=== PATIENT | male | born 1965 | race Caucasian/White ===

== ENCOUNTER 2018-03-03 15:40 | Inpatient (IN) ==
--- OUTSIDE RECORDS SUMMARY | 2018-03-02 15:54 | External Medical Summary | Referral Summary ---
:1965 Author Organization [facility] [address] [place] [address] Care Team Providers Name Role Phone Frederic Weems Primary Care Physician Encounter VC Date(s): 11/13/15 - 11/13/15 [facility] [address] [place] [address] [place] Discharge Disposition: 01-Home or Self Care Attending Physician: Frederic Weems MD Admitting Physician: Frederic Weems MD Vital Signs Most recent to oldest [Reference Range]: 1 Temperature Tympanic [36.6-38.1 degC] 36.4 degC *LOW* (11/13/15 7:38 AM) Peripheral Pulse Rate [60-100 bpm] 64 bpm (11/13/15 7:38 AM) Blood Pressure [90-140/60-90 mmHg] 134/78 mmHg (11/13/15 7:38 AM) Problem List Condition Effective Dates Status Health Status Informant Benign essential hypertension Active (disorder)(Confirmed) Benign prostatic Resolved hypertrophy(Confirmed) Hypertension(Confirmed) Active Hypertrophy-benign(Confirmed) Active APC (atrial premature Active contractions)(Confirmed) Single skin nodule(Confirmed) Active Squamous cell cancer of skin of left Active cheek(Confirmed) Thyroid disease(Confirmed) Active Allergies, Adverse Reactions, Alerts No Known Allergies Medications lisinopril 5 mg oral tablet See Instructions, TAKE 1/2 TABLET BY MOUTH EVERY DAY, # 30 tabs, 2 Refill(s), eRx: [facility] #[id number], TAKE ONE TABLET BY MOUTH EVERY DAY Start Date: 10/26/15 Status: Orderedmultivitamin 1 tablet, Oral, Daily, 0 Refill(s) Start Date: 07/03/14 Status: Ordered Results No data available for this section Immunizations Vaccine Date Refusal Reason tetanus/diphth/pertuss (Tdap) adult/adol 11/13/15 tetanus/diphth/pertuss (Tdap) adult/adol 04/19/09 hepatitis A-hepatitis B vaccine 11/13/15 tetanus-diphth toxoids (Td) adult/adol 06/04/98 Procedures Procedure Date Related Diagnosis Body Site Fine needle aspiration biopsy of thyroid using 02/06/10 ultrasound guidance1 Repair of inguinal hernia2 11/24/02 Umbilical herniorrhaphy3 11/24/02 Extraction of wisdom teeth Tonsillectomy Vasectomy 1sparse colloid, a few clusters of benign thyroid follicular epithelial [id number], together with inguinal hernia Social History Social History Type Response Smoking Status Never smoker Assessment and Plan Extracted from: Title: Ambulatory Patient Education Author: Frederic Weems MD Date: Family Medicine Acute Bronchitis Bronchitis is inflammation of the airways that extend from the windpipe into the lungs (bronchi). The inflammation often causes mucus to develop. This leads to a cough, which is the most common symptom of bronchitis. In acute bronchitis, the condition usually develops suddenly and goes away over time, usually in a couple weeks. Smoking, allergies, and asthma can make bronchitis worse. Repeated episodes of bronchitis may cause further lung problems. CAUSES Acute bronchitis is most often caused by the same virus that causes a cold. The virus can spread from person to person (contagious) through coughing, sneezing, and touching contaminated objects. SIGNS AND SYMPTOMS Cough. Fever. Coughing up mucus. Body aches. Chest congestion. Chills. Shortness of breath. Sore throat. DIAGNOSIS Acute bronchitis is usually diagnosed through a physical exam. Your health care provider will also ask you questions about your medical history. Tests, such as chest X-rays, are sometimes done to rule out other conditions. TREATMENT Acute bronchitis usually goes away in a couple weeks. Oftentimes, no medical treatment is necessary. Medicines are sometimes given for relief of fever or cough. Antibiotic medicines are usually not need ed but may be prescribed in certain situations. In some cases, an inhaler may be recommended to help reduce shortness of breath and control the cough. A cool mist vaporizer may also be used to help thin bronchial secretions and make it easier to clear the chest. HOME CARE INSTRUCTIONS Get plenty of rest. Drink enough fluids to keep your urine clear or pale yellow (unless you have a medical condition that requires fluid restriction). Increasing fluids may help thin your respiratory secretions (sputu m) and reduce chest congestion, and it will prevent dehydration. Take medicines only as directed by your health care provider. If you were prescribed an antibiotic medicine, finish it all even if you start to feel better. Avoid smoking and secondhand smoke. Exposure to cigarette smoke or irritating chemicals will make bronchitis worse. If you are a smoker, consider using nicotine gum or skin patches to help control withdrawal symptoms. Quitting smoking will help your lungs heal faster. Reduce the chances of another bout of acute bronchitis by washing your hands frequently, avoiding people with cold symptoms, and trying not to touch your hands to your mouth, nose, or eyes. Keep all follow-up visits as directed by your health care provider. SEEK MEDICAL CARE IF: Your symptoms do not improve after 1 week of treatment. SEEK IMMEDIATE MEDICAL CARE IF: You develop an increased fever or chills. You have chest pain. You have severe shortness of breath. You have bloody sputum. You develop dehydration. You faint or repeatedly feel like you are going to pass out. You develop repeated vomiting. You develop a severe headache. MAKE SURE YOU: Understand these instructions. Will watch your condition. Will get help right away if you are not doing well or get worse. Document Released: 12/10/2005 Document Revised: 03/19/2015 Document Reviewed: 04/25/2014 [facility] Patient Information 2015 [employer]. This information is not intended to replace advice given to you by your health care provider. Make sure you discuss any questions you have with your health care provider. Benign Prostatic Hyperplasia An enlarged prostate (benign prostatic hyperplasia) is common in older men. You may experience the following: Weak urine stream. Dribbling. Feeling like the bladder has not emptied completely. Difficulty starting urination. Getting up frequently at night to urinate. Urinating more frequently during the day. HOME CARE INSTRUCTIONS Monitor your prostatic hyperplasia for any changes. The following actions may help to alleviate any discomfort you are experiencing: Give yourself time when you urinate. Stay away from alcohol. Avoid beverages containing caffeine, such as coffee, tea, and luciano, because they can make the problem worse. Avoid decongestants, antihistamines, and some prescription medicines that can make the problem worse. Follow up with your health care provider for further treatment as recommended. SEEK MEDICAL CARE IF: You are experiencing progressive difficulty voiding. Your urine stream is progressively getting narrower. You are awaking from sleep with the urge to void more frequently. You are constantly feeling the need to void. You experience loss of urine, especially in small amounts. SEEK IMMEDIATE MEDICAL CARE IF: You develop increased pain with urination or are unable to urinate. You develop severe abdominal pain, vomiting, a high fever, or fainting. You develop back pain or blood in your urine. MAKE SURE YOU: Understand these instructions. Will watch your condition. Will get help right away if you are not doing well or get worse. Document Released: 11/02/2006 Document Revised: 07/05/2014 Document Reviewed: 04/04/2014 [employer] Patient Information 2015 [employer]. This information is not intended to replace advice given to you by your health care provider. Make sure you discuss any questions you have with your health care provider. Preventive Care for Adults A healthy lifestyle and preventive care can promote health and wellness. Preventive health guidelines for men include the following [place] practices: A routine yearly physical is a good way to check with your health care provider about your health and preventative screening. It is a chance to share any concerns and updates on your health and to receive a thorough exam. Visit your dentist for a routine exam and preventative care every 6 months. [place] your teeth twice a day and floss once a day. Good oral hygiene prevents tooth decay and gum disease. The frequency of eye exams is based on your age, health, family medical history, use of contact lenses, and other factors. Follow your health care provider's recommendations for frequency of eye exams. Eat a healthy diet. Foods such as vegetables, fruits, whole grains, low- fat dairy products, and lean protein foods contain the nutrients you need without too many calories. Decrease your intake of foods high in solid fats, added sugars, and salt. Eat the right amount of calories for you.Get information about a proper diet from your health care provider, if necessary. Regular physical exercise is one of the most important things you can do for your health. Most adults should get at least 150 minutes of moderate- intensity exercise (any activity that increases you r heart rate and causes you to sweat) each week. In addition, most adults need muscle-strengthening exercises on 2 or more days a week. Maintain a healthy weight. The body mass index (BMI) is a screening tool to identify possible weight problems. It provides an estimate of body fat based on height and weight. Your health care provi [facility]ad[facility] can find your BMI and can help you achieve or maintain a healthy weight. For adults 20 years and older: A BMI below 18.5 is considered underweight. A BMI of 18.5 to 24.9 is normal. A BMI of 25 to 29.9 is considered overweight. A BMI of 30 and above is considered obese. Maintain normal blood lipids and cholesterol levels by exercising and minimizing your intake of saturated fat. Eat a balanced diet with plenty of fruit and vegetables. Blood tests for lipids and ch olesterol should begin at age 20 and be repeated every 5 years. If your lipid or cholesterol levels are high, you are over 50, or you are at high risk for heart disease, you may need your cholesterol le vels checked more frequently.Ongoing high lipid and cholesterol levels should be treated with medicines if diet and exercise are not working. If you smoke, find out from your health care provider how to quit. If you do not use tobacco, do not start. Lung cancer screening is recommended for adults aged 5580 years who are at high risk for developing lung cancer because of a history of smoking. A yearly low-dose CT scan of the lungs is recomme nded for people who have at least a 64-obna-ocua history of smoking and are a current smoker or have quit within the past 15 years. A pack year of smoking is smoking an average of 1 pack of cigarettes a day for 1 year (for example: 1 pack a day for 30 years or 2 packs a day for 15 years). Yearly screening should continue until the smoker has stopped smoking for at least 15 years. Yearly screening shou ld be stopped for people who develop a health problem that would prevent them from having lung cancer treatment. If you choose to drink alcohol, do not have more than 2 drinks per day. One drink is considered to be 12 ounces (355 mL) of beer, 5 ounces (148 mL) of wine, or 1.5 ounces (44 mL) of liquor. Avoid use of street drugs. Do not share needles with anyone. Ask for help if you need support or instructions about stopping the use of drugs. High blood pressure causes heart disease and increases the risk of stroke. Your blood pressure should be checked at least every 12 years. Ongoing high blood pressure should be treated with medic heather, if weight loss and exercise are not effective. If you are 4579 years old, ask your health care provider if you should take aspirin to prevent heart disease. Diabetes screening involves taking a blood sample to check your fasting blood sugar level. This should be done once every 3 years, after age 45, if you are within normal weight and without risk fac tors for diabetes. Testing should be considered at a younger age or be carried out more frequently if you are overweight and have at least 1 risk factor for diabetes. Colorectal cancer can be detected and often prevented. Most routine colorectal cancer screening begins at the age of 50 and continues through age 75. However, your health care provider may recommen d screening at an earlier age if you have risk factors for colon cancer. On a yearly basis, your health care provider may provide home test kits to check for hidden blood in the stool. Use of a small ca justine at the end of a tube to directly examine the colon (sigmoidoscopy or colonoscopy) can detect the earliest forms of colorectal cancer. Talk to your health care provider about this at age 50, when ro utine screening begins. Direct exam of the colon should be repeated every 5 10 years through age 75, unless early forms of precancerous polyps or small growths are found. People who are at an increased risk for hepatitis B should be screened for this virus. You are considered at high risk for hepatitis B if: You were born in a country where hepatitis B occurs often. Talk with your health care provider about which countries are considered high risk. Your parents were born in a high-risk country and you have not received a shot to protect against hepatitis B (hepatitis B vaccine). You have HIV or AIDS. You use needles to inject street drugs. You live with, or have sex with, someone who has hepatitis B. You are a man who has sex with other men (MSM). You get hemodialysis treatment. You take certain medicines for conditions such as cancer, organ transplantation, and autoimmune conditions. Hepatitis C blood testing is recommended for all people born from 1945 through 1965 and any individual with known risks for hepatitis C. Practice safe sex. Use condoms and avoid high-risk sexual practices to reduce the spread of sexually transmitted infections (STIs). STIs include gonorrhea, chlamydia, syphilis, trichomonas, herpes, HPV, and human immunodeficiency virus (HIV). Herpes, HIV, and HPV are viral illnesses that have no cure. They can result in disability, cancer, and . If you are at risk of being infected with HIV, it is recommended that you take a prescription medicine daily to prevent HIV infection. This is called preexposure prophylaxis (PrEP). You are considered at risk if: You are a man who has sex with other men (MSM) and have other risk factors. You are a heterosexual man, are sexually active, and are at increased risk for HIV infection. You take drugs by injection. You are sexually active with a partner who has HIV. Talk with your health care provider about whether you are at high risk of being infected with HIV. If you choose to begin PrEP, you should first be tested for HIV. You should then be tested every 3 months for as long as you are taking PrEP. A one-time screening for abdominal aortic aneurysm (AAA) and surgical repair of large AAAs by ultrasound are recommended for men ages 65 to 75 years who are current or former smokers. Healthy men should no longer receive prostate-specific antigen (PSA) blood tests as part of routine cancer screening. Talk with your health care provider about prostate cancer screening. Testicular cancer screening is not recommended for adult males who have no symptoms. Screening includes self-exam, a health care provider exam, and other screening tests. Consult with your health c are provider about any symptoms you have or any concerns you have about testicular cancer. Use sunscreen. Apply sunscreen liberally and repeatedly throughout the day. You should seek shade when your shadow is shorter than you. Protect yourself by wearing long sleeves, pants, a wide-brimm ed hat, and sunglasses year round, whenever you are outdoors. Once a month, do a whole-body skin exam, using a mirror to look at the skin on your back. Tell your health care provider about new moles, moles that have irregular borders, moles that are larger th an a pencil eraser, or moles that have changed in shape or color. Stay current with required vaccines (immunizations). Influenza vaccine. All adults should be immunized every year. Tetanus, diphtheria, and acellular pertussis (Td, Tdap) vaccine. An adult who has not previously received Tdap or who does not know his vaccine status should receive 1 dose of Tdap. This initial do se should be followed by tetanus and diphtheria toxoids (Td) booster doses every 10 years. Adults with an unknown or incomplete history of completing a 3- dose immunization series with Td-containing vacc heather should begin or complete a primary immunization series including a Tdap dose. Adults should receive a Td booster every 10 years. Varicella vaccine. An adult without evidence of immunity to varicella should receive 2 doses or a second dose if he has previously received 1 dose. Human papillomavirus (HPV) vaccine. Males aged 1321 years who have not received the vaccine previously should receive the 3-dose series. Males aged 22 26 years may be immunized. Immunization i s recommended through the age of 26 years for any male who has sex with males and did not get any or all doses earlier. Immunization is recommended for any person with an immunocompromised condition thr ough the age of 26 years if he did not get any or all doses earlier. During the 3-dose series, the second dose should be obtained 48 weeks after the first dose. The third dose should be obtained 24 w eeks after the first dose and 16 weeks after the second dose. Zoster vaccine. One dose is recommended for adults aged 60 years or older unless certain conditions are present. Measles, mumps, and rubella (MMR) vaccine. Adults born before 1958 generally are considered immune to measles and mumps. Adults born in 1958 or later should have 1 or more doses of MMR vaccine unle ss there is a contraindication to the vaccine or there is laboratory evidence of immunity to each of the three diseases. A routine second dose of MMR vaccine should be obtained at least 28 days after th e first dose for students attending postsecondary schools, health care workers , or international travelers. People who received inactivated measles vaccine or an unknown type of measles vaccine during should receive 2 doses of MMR vaccine. People who received inactivated mumps vaccine or an unknown type of mumps vaccine before 1978 and are at high risk for mumps infection should consider i mmunization with 2 doses of MMR vaccine. Unvaccinated health care workers born before 1956 who lack laboratory evidence of measles, mumps, or rubella immunity or laboratory confirmation of disease shailesh mills consider measles and mumps immunization with 2 doses of MMR vaccine or rubella immunization with 1 dose of MMR vaccine. Pneumococcal 13-valent conjugate (PCV13) vaccine. When indicated, a person who is uncertain of his immunization history and has no record of immunization should receive the PCV13 vaccine. An adult aged 19 years or older who has certain medical conditions and has not been previously immunized should receive 1 dose of PCV13 vaccine. This PCV13 should be followed with a dose of pneumococcal polysacc haride (PPSV23) vaccine. The PPSV23 vaccine dose should be obtained at least 8 weeks after the dose of PCV13 vaccine. An adult aged 19 years or older who has certain medical conditions and previously re ceived 1 or more doses of PPSV23 vaccine should receive 1 dose of PCV13. The PCV13 vaccine dose should be obtained 1 or more years after the last PPSV23 vaccine dose. Pneumococcal polysaccharide (PPSV23) vaccine. When PCV13 is also indicated , PCV13 should be obtained first. All adults aged 65 years and older should be immunized. An adult younger than age 65 year s who has certain medical conditions should be immunized. Any person who resides in a usp or long-term care facility should be immunized. An adult smoker should be immunized. People with an imm unocompromised condition and certain other conditions should receive both PCV13 and PPSV23 vaccines. People with human immunodeficiency virus (HIV) infection should be immunized as soon as possible afte r diagnosis. Immunization during chemotherapy or radiation therapy should be avoided. Routine use of PPSV23 vaccine is not recommended for [place] Indians, [place] Natives, or people younger than 65 yea rs unless there are medical conditions that require PPSV23 vaccine. When indicated, people who have unknown immunization and have no record of immunization should receive PPSV23 vaccine. One-time revacc ination 5 years after the first dose of PPSV23 is recommended for people aged 1964 years who have chronic kidney failure, nephrotic syndrome, asplenia, or immunocompromised conditions. People who rec eived 12 doses of PPSV23 before age 65 years should receive another dose of PPSV23 vaccine at age 65 years or later if at least 5 years have passed since the previous dose. Doses of PPSV23 are not ne eded for people immunized with PPSV23 at or after age 65 years. Meningococcal vaccine. Adults with asplenia or persistent complement component deficiencies should receive 2 doses of quadrivalent meningococcal conjugate (MenACWY-D) vaccine. The doses should be o btained at least 2 months apart. Microbiologists working with certain meningococcal bacteria, recruits, people at risk during an outbreak, and people who travel to or live in countries with a h igh rate of meningitis should be immunized. A first-year college student up through age 21 years who is living in a residence [place] should receive a dose if he did not receive a dose on or after his 16th birthday. Adults who have certain high-risk conditions should receive one or more doses of vaccine. Hepatitis A vaccine. Adults who wish to be protected from this disease, have certain high-risk conditions, work with hepatitis A-infected animals, work in hepatitis A research labs, or travel to or work in countries with a high rate of hepatitis A should be immunized. Adults who were previously unvaccinated and who anticipate close contact with an international adoptee during the first [address] arrival in the [place] from a country with a high rate of hepatitis A should be immunized. Hepatitis B vaccine. Adults should be immunized if they wish to be protected from this disease, have certain high-risk conditions, may be exposed to blood or other infectious body fluids, are house hold contacts or sex partners of hepatitis B positive people, are clients or workers in certain care facilities, or travel to or work in countries with a high rate of hepatitis B. Haemophilus influenzae type b (Hib) vaccine. A previously unvaccinated person with asplenia or sickle cell disease or having a scheduled splenectomy should receive 1 dose of Hib vaccine. Regardless of previous immunization, a recipient of a hematopoietic stem cell transplant should receive a 3-dose series 612 months after his successful transplant. Hib vaccine is not recommended for adults with HIV infection. Preventive Service / Frequency Ages 19 to 39 Blood pressure check. / Every 1 to 2 years. Lipid and cholesterol check. / Every 5 years beginning at age 20. Hepatitis C blood test. / For any individual with known risks for hepatitis C. Skin self-exam. / Monthly. Influenza vaccine. / Every year. Tetanus, diphtheria, and acellular pertussis (Tdap, Td) vaccine. / Consult your health care provider. 1 dose of Td every 10 years. Varicella vaccine. / Consult your health care provider. HPV vaccine. / 3 doses over 6 months, if 26 or younger. Measles, mumps, rubella (MMR) vaccine. / You need at least 1 dose of MMR if you were born in 1957 or later. You may also need a second dose. Pneumococcal 13-valent conjugate (PCV13) vaccine. / Consult your health care provider. Pneumococcal polysaccharide (PPSV23) vaccine. / 1 to 2 doses if you smoke cigarettes or if you have certain conditions. Meningococcal vaccine. / 1 dose if you are age 19 to 21 years and a first-year college student living in a residence [place], or have one of several medical conditions. You may also need additional booster doses. Hepatitis A vaccine. / Consult your health care provider. Hepatitis B vaccine. / Consult your health care provider. Haemophilus influenzae type b (Hib) vaccine. / Consult your health care provider. Ages 40 to 64 Blood pressure check. / Every 1 to 2 years. Lipid and cholesterol check. / Every 5 years beginning at age 20. Lung cancer screening. / Every year if you are aged 5580 years and have a 59-iuev-jubl history of smoking and currently smoke or have quit within the past 15 years. Yearly screening is stopped o nce you have quit smoking for at least 15 years or develop a health problem that would prevent you from having lung cancer treatment. Fecal occult blood test (FOBT) of stool. / Every year beginning at age 50 and continuing until age 75. You may not have to do this test if you get a colonoscopy every 10 years. Flexible sigmoidoscopy or colonoscopy. / Every 5 years for a flexible sigmoidoscopy or every 10 years for a colonoscopy beginning at age 50 and continuing until age 75. Hepatitis C blood test. / For all people born from 1945 through 1965 and any individual with known risks for hepatitis C. Skin self-exam. / Monthly. Influenza vaccine. / Every year. Tetanus, diphtheria, and acellular pertussis (Tdap/Td) vaccine. / Consult your health care provider. 1 dose of Td every 10 years. Varicella vaccine. / Consult your health care provider. Zoster vaccine. / 1 dose for adults aged 60 years or older. Measles, mumps, rubella (MMR) vaccine. / You need at least 1 dose of MMR if you were born in 1957 or later. You may also need a second dose. Pneumococcal 13-valent conjugate (PCV13) vaccine. / Consult your health care provider. Pneumococcal polysaccharide (PPSV23) vaccine. / 1 to 2 doses if you smoke cigarettes or if you have certain conditions. Meningococcal vaccine. / Consult your health care provider. Hepatitis A vaccine. / Consult your health care provider. Hepatitis B vaccine. / Consult your health care provider. Haemophilus influenzae type b (Hib) vaccine. / Consult your health care provider. Ages 65 and over Blood pressure check. / Every 1 to 2 years. Lipid and cholesterol check./ Every 5 years beginning at age 20. Lung cancer screening. / Every year if you are aged 5580 years and have a 40-ryhj-nbxa history of smoking and currently smoke or have quit within the past 15 years. Yearly screening is stopped o nce you have quit smoking for at least 15 years or develop a health problem that would prevent you from having lung cancer treatment. Fecal occult blood test (FOBT) of stool. / Every year beginning at age 50 and continuing until age 75. You may not have to do this test if you get a colonoscopy every 10 years. Flexible sigmoidoscopy or colonoscopy. / Every 5 years for a flexible sigmoidoscopy or every 10 years for a colonoscopy beginning at age 50 and continuing until age 75. Hepatitis C blood test. / For all people born from 1945 through 1965 and any individual with known risks for hepatitis C. Abdominal aortic aneurysm (AAA) screening. / A one-time screening for ages 65 to 75 years who are current or former smokers. Skin self-exam. / Monthly. Influenza vaccine. / Every year. Tetanus, diphtheria, and acellular pertussis (Tdap/Td) vaccine. / 1 dose of Td every 10 years. Varicella vaccine. / Consult your health care provider. Zoster vaccine. / 1 dose for adults aged 60 years or older. Pneumococcal 13-valent conjugate (PCV13) vaccine. / Consult your health care provider. Pneumococcal polysaccharide (PPSV23) vaccine. / 1 dose for all adults aged 65 years and older. Meningococcal vaccine. / Consult your health care provider. Hepatitis A vaccine. / Consult your health care provider. Hepatitis B vaccine. / Consult your health care provider. Haemophilus influenzae type b (Hib) vaccine. / Consult your health care provider. Family history and personal history of risk and conditions may change your health care provider's recommendations. Document Released: 12/29/2002 Document Revised: 11/07/2014 Document Reviewed: 03/29/2012 Exit[employer] Patient Information 2015 [employer]. This information is not intended to replace advice given to you by your health care provider. Make sure you discuss any questions you have with your health care provider. No follow up information was provided. Extracted from: Title: Male physical Author: Frederic Weems MD Date: 11/13/15 Impression and Plan Diagnosis Benign essential hypertension (disorder) (QLW96-OW I10, Working, Medical). Well adult exam (SGZ12-QT Z00.00, Working, Medical). Non-toxic multinodular goiter (IAI74-FN E04.2, Working, Medical). BPH with urinary obstruction (XZN63-SU N40.1, Working, Medical). Snoring (YEB00-VO R06.83, Working, Medical). Acute bronchitis (OAQ39-JC J20.9, Working, Medical). Acute pansinusitis (EFN45-HC J01.40, Working, Medical). Plan: 1) Healthy diet and daily exercise helps most things. 2) Continue your current meds. 3) Get fasting lab drawn. 4) Twinrix vaccine series started today. You can get the second shot in one month or more. The third shot can be in 6 months. 5) See me in one year and as needed. 6) Rest and humidity helps with getting over this cold.. Orders Orders (Selected) Outpatient Orders Ordered Periodic Comp Preventive Med 40 to 64 years Est 83059: hepatitis A-hepatitis B vaccine: 0.5 mL, IntraMuscular, Once Future (On Hold) US Thyroid: . Dx/Order Association Plan: Diagnosis: Acute bronchitis Comment: Ordered: Periodic Comp Preventive Med 40 to 64 years Est 05599; 11/13/15 8:08:00 [employer]IOR PROGRAM PL[employer]NER, Well adult exam | Acute bronchitis | Acute pansinusitis | BPH with urinary obstruction Diagnosis: Acute pansinusitis Comment: Ordered: Periodic Comp Preventive Med 40 to 64 years Est 00291; 11/13/15 8:08:00 SENIOR PROGRAM PLANNER, Well adult exam | Acute bronchitis | Acute pansinusitis | BPH with urinary obstruction Diagnosis: BPH with urinary obstruction Comment: Ordered: Periodic Comp Preventive Med 40 to 64 years Est 41875; 11/13/15 8:08:00 SENIOR PROGRAM PLANNER, Well adult exam | Acute bronchitis | Acute pansinusitis | BPH with urinary obstruction Diagnosis: Benign essential hypertension (disorder) Comment: Diagnosis: Need for hepatitis A and B vaccination Comment: Ordered: hepatitis A-hepatitis B vaccine; 0.5 mL, IntraMuscular, Once, First Dose: 11/13/15 8:15:00 SENIOR PROGRAM PLANNER, Stop Date: 11/13/15 8:15:00 SENIOR PROGRAM PLANNER Diagnosis: Non-toxic multinodular goiter Comment: Diagnosis: Snoring Comment: Diagnosis: Well adult exam Comment: Ordered: Periodic Comp Preventive Med 40 to 64 years Est 05620; 11/13/15 8:08:00 SENIOR PROGRAM PLANNER, Well adult exam | Acute bronchitis | Acute pansinusitis | BPH with urinary obstruction Diagnosis: Non-toxic multinodular goiter Comment: End of Orders ."
--- OUTSIDE RECORDS SUMMARY | 2018-03-02 15:54 | External Medical Summary | Referral Summary ---
:1965 Author Organization [facility] [place] [address] Care Team Providers Name Role Phone Frederic Weems Primary Care Physician Encounter VC Date(s): 05/14/16 - 05/14/16 [facility] [place] [address]- Discharge Disposition: 01-Home or Self Care Attending Physician: Frederic Weems MD Admitting Physician: Frederic Weems MD Vital Signs No data available for this section Problem List Condition Effective Dates Status Health Status Informant Benign essential hypertension Active (disorder)(Confirmed) Benign prostatic Resolved hypertrophy(Confirmed) Hypertension(Confirmed) Active Hypertrophy-benign(Confirmed) Active APC (atrial premature Active contractions)(Confirmed) Single skin nodule(Confirmed) Active Squamous cell cancer of skin of left Active cheek(Confirmed) Thyroid disease(Confirmed) Active Allergies, Adverse Reactions, Alerts No Known Allergies Medications lisinopril 5 mg oral tablet 2.5 mg 0.5 tabs, Oral, Daily, mail order pharmacy, # 45 tabs, 4 Refill(s), Pharmacy: [facility], 0.5 tabs Oral Daily,Instr:mail order pharmacy Start Date: 12/13/15 Status: Orderedmultivitamin 1 tablet, Oral, Daily, 0 Refill(s) Start Date: 07/03/14 Status: Ordered Results No data available for this section Immunizations Vaccine Date Refusal Reason tetanus/diphth/pertuss (Tdap) adult/adol 11/13/15 tetanus/diphth/pertuss (Tdap) adult/adol 04/19/09 hepatitis A-hepatitis B vaccine 05/14/16 hepatitis A-hepatitis B vaccine 11/13/15 tetanus-diphth toxoids (Td) adult/adol 06/04/98 Procedures Procedure Date Related Diagnosis Body Site Fine needle aspiration biopsy of thyroid using 02/06/10 ultrasound guidance1 Repair of inguinal hernia2 11/24/02 Umbilical herniorrhaphy3 11/24/02 Extraction of wisdom teeth Tonsillectomy Vasectomy 1sparse colloid, a few clusters of benign thyroid follicular epithelial [id number], together with inguinal hernia Social History Social History Type Response Smoking Status Never smoker Assessment and Plan No data available for this section
--- OUTSIDE RECORDS SUMMARY | 2018-03-02 15:54 | External Medical Summary ---
:1965 Author Organization [facility] Address [address] [place] [address] Care Team Providers Name Role Phone Tejas To Unavailable Unavailable PROBLEMS Type Condition ICD9-CM Code [id number] Onset Condition SNOMED Code Code Dates Status Problem shelter (current) Z79.01 Active 762006839 use of anticoagulants Problem Episodic atrial I48.0 Active 06418362 fibrillation Problem Bradycardia 427.89 Active 71585462 Problem Hypertension 401.9 Active 28991632 Problem Hypertension I10 Active 36176478 Problem Abnormal 794.30 Active 271449835 Cardiovascular Study ALLERGIES Unknown Allergies SOCIAL HISTORY No smoking Hx information available PLAN OF CARE VITAL SIGNS MEDICATIONS Unknown Medications RESULTS No Results PROCEDURES No Known procedures IMMUNIZATIONS No Known Immunizations
--- OUTSIDE RECORDS SUMMARY | 2018-03-02 15:54 | External Medical Summary ---
:1965 Author Organization [facility] Address [address] [place] [address] Care Team Providers Name Role Phone Tejas To Unavailable Unavailable PROBLEMS Type Condition ICD9-CM Code [id number] Onset Condition SNOMED Code Code Dates Status Problem retirement (current) Z79.01 Active 299286723 use of anticoagulants Problem Episodic atrial I48.0 Active 38185629 fibrillation Problem Bradycardia 427.89 Active 67830218 Problem Hypertension 401.9 Active 77357152 Problem Hypertension I10 Active 53137776 Problem Abnormal 794.30 Active 283026150 Cardiovascular Study ALLERGIES Unknown Allergies SOCIAL HISTORY No smoking Hx information available PLAN OF CARE VITAL SIGNS MEDICATIONS Medication Instructions Dosage Frequency Start Date End Date Duration Status Amlodipine Orally qd 1 tab 24h 90 days Active Besylate 5 MG Sotalol HCl 80 Orally qd 1/2 qam 1 24h 90 days Active MG tab qpm RESULTS No Results PROCEDURES No Known procedures IMMUNIZATIONS No Known Immunizations
--- OUTSIDE RECORDS SUMMARY | 2018-03-02 15:54 | External Medical Summary ---
:1965 Author Organization [employer] Care Team Providers Name Role Phone Yousuf Tejas Provider Role Unavailable Allergies, Adverse Reactions, Alerts Substance Reaction Event Type N.K.D.A. Info Not Available Non Drug Allergy Problems Problem Type Condition ICD-9 Code Onset Dates Condition Status Assessment Abnormal Cardiovascular Study 794.30 Active Assessment Bradycardia 427.89 Active Problem Hypertension 401.9 Active Assessment Hypertension 401.9 Active Medications Medication Code System Code Instructions Start Date End Date Status Dosage Lisinopril NDC [address]- 5 MG Orally qhs 1/2 tab 01 M-Vit NDC [address]- Orally qd 1 tab 01 Procedures Procedure Coding System Code Date Office Visit, Est Pt., Level 3 CPT-4 42056 June 13, 2015 ELECTROCARDIOGRAM, COMPLETE CPT-4 78751 June 13, 2015 Vital Signs Date/Time: June 13, 2015 BMI 34.50 Index Weight 291.0 lbs Height 6 ft 5 in in Cardiac Monitoring Heart Rate 60 /min Oximetry 96% % Blood Pressure Diastolic 70 mm Hg Blood Pressure Systolic 122 mm Hg Results No Known Results Summary Purpose [employer] Submission
--- OUTSIDE RECORDS SUMMARY | 2018-03-02 15:54 | External Medical Summary | Referral Summary ---
:1965 [facility] Address [address] [place] [address] Care Team Providers Name Role Phone Dank Frederic Gina Primary Care Physician Encounter VC Date(s): 06/04/17 - 06/04/17 [facility] [place], [facility] [address] [place] [address]- [phone] Discharge Disposition: 01-Home or Self Care Attending Physician: Theo Villalpando MD Admitting Physician: Theo Villalpando MD Referring Physician: Theo Villalpando MD Vital Signs No data available for this section Problem List Condition Effective Dates Status Health Status Informant Benign essential hypertension Active (disorder)(Confirmed) Benign prostatic Resolved hypertrophy(Confirmed) Hypertension(Confirmed) Active Hypertrophy-benign(Confirmed) Active Obstructive sleep apnea treated with Active continuous positive airway pressure (CPAP)(Confirmed) APC (atrial premature Active contractions)(Confirmed) Single skin nodule(Confirmed) Active Squamous cell cancer of skin of left Active cheek(Confirmed) Thyroid disease(Confirmed) Active Allergies, Adverse Reactions, Alerts No Known Allergies Medications amLODIPine 5 mg oral tablet 5 mg 1 tabs, Oral, Bedtime (once a day), Dr. To, 0 Refill(s) Start Date: 02/12/17 Status: Orderedmultivitamin 1 tablet, Oral, Daily, 0 Refill(s) Start Date: 07/03/14 Status: Orderedsotalol 80 mg oral tablet See Instructions, 1/2 tablet oral in the monring and 1 at night (Dr. To), 0 Refill(s) Start Date: 02/12/17 Status: OrderedXarelto 20 mg oral tablet 20 mg 1 tabs, Oral, Daily, # 30 tabs, 11 Refill(s), Pharmacy: [facility] # [id number], 1 tabs Oral Daily Start Date: 02/12/17 Status: Ordered Results No data available for this section Immunizations Given and Recorded Vaccine Date Status Refusal Reason tetanus/diphth/pertuss (Tdap) adult/adol 11/13/15 Given tetanus/diphth/pertuss (Tdap) adult/adol 04/19/09 Recorded hepatitis A-hepatitis B vaccine 05/14/16 Given hepatitis A-hepatitis B vaccine 11/13/15 Given tetanus-diphth toxoids (Td) adult/adol 06/04/98 Recorded Procedures Procedure Date Related Diagnosis Body Site Colonoscopy2013 Fine needle aspiration biopsy of thyroid using 02/06/10 ultrasound guidance2 Repair of inguinal hernia3 11/24/02 Umbilical herniorrhaphy4 11/24/02 Extraction of wisdom teeth Tonsillectomy Vasectomy 1repeat in 10 [id number] colloid, a few clusters of benign thyroid follicular epithelial [id number], together with inguinal hernia Social History Social History Type Response Smoking Status Never smoker Assessment and Plan No data available for this section
--- OUTSIDE RECORDS SUMMARY | 2018-03-02 15:54 | External Medical Summary | Referral Summary ---
:1965 Author Organization [facility] [address] [place] [address] Care Team Providers Name Role Phone Frederic Weems Primary Care Physician Encounter [facility] Date(s): 02/12/17 - 02/12/17 [facility] [address] [place] [address] [place] Discharge Diagnosis: Paroxysmal atrial fibrillation Discharge Diagnosis: Acute bronchitis Discharge Diagnosis: Snoring Discharge Diagnosis: Excessive daytime sleepiness Discharge Diagnosis: Benign essential hypertension Discharge Diagnosis: Acute pansinusitis Discharge Disposition: -Home or Self Care Attending Physician: Frederic Weems MD Admitting Physician: Frederic Weems MD Vital Signs Most recent to oldest [Reference Range]: 1 Temperature Tympanic [36.6-38.1 degC] 37.0 degC (02/12/17 10:10 AM) Peripheral Pulse Rate [60-100 bpm] 64 bpm (02/12/17 10:10 AM) Blood Pressure [90-140/60-90 mmHg] 130/72 mmHg (02/12/17 10:10 AM) Problem List Condition Effective Dates Status [...] Daily, # 30 tabs, 11 Refill(s), Pharmacy: [facility] # [id number], 1 tabs Oral Daily Start Date: 02/12/17 [...] wisdom teeth Tonsillectomy Vasectomy 1repeat in 10 [id number] colloid, a few clusters of benign thyroid follicular epithelial [id number], together with inguinal hernia Social History Social History Type Response Smoking Status Never smoker Assessment and Plan Extracted from: Title: Ambulatory Patient Education Author: Frederic Weems MD Date: 02/12/17 Cardiovascular Atrial Fibrillation Atrial fibrillation is a type of irregular or rapid heartbeat (arrhythmia). In atrial fibrillation, the heart quivers continuously in a chaotic pattern. This occurs when parts of the heart receive disor ganized signals that make the heart unable to pump blood normally. This can increase the risk for stroke, heart failure, and other heart-related conditions. There are different types of atrial fibrillation, including: Paroxysmal atrial fibrillation. This type starts suddenly, and it usually stops on its own shortly after it starts. Persistent atrial fibrillation. This type often lasts longer than a week. It may stop on its own or with treatment. Long-lasting persistent atrial fibrillation. This type lasts longer than 12 months. Permanent atrial fibrillation. This type does not go away. Talk with your health care provider to learn about the type of atrial fibrillation that you have. CAUSES This condition is caused by some heart-related conditions or procedures, including: A heart attack. Coronary artery disease. Heart failure. Heart valve conditions. High blood pressure. Inflammation of the sac that surrounds the heart (pericarditis). Heart surgery. Certain heart rhythm disorders, such as Zuca-Ywgakoxbt-Jjpui syndrome. Other causes include: Pneumonia. Obstructive sleep apnea. Blockage of an artery in the lungs (pulmonary embolism, or PE). Lung cancer. Chronic lung disease. Thyroid problems, especially if the thyroid is overactive (hyperthyroidism) . Caffeine. Excessive alcohol use or illegal drug use. Use of some medicines, including certain decongestants and diet pills. Sometimes, the cause cannot be found. RISK FACTORS This condition is more likely to develop in: People who are older in age. People who smoke. People who have diabetes mellitus. People who are overweight (obese). Athletes who exercise vigorously. SYMPTOMS Symptoms of this condition include: A feeling that your heart is beating rapidly or irregularly. A feeling of discomfort or pain in your chest. Shortness of breath. Sudden light-headedness or weakness. Getting tired easily during exercise. In some cases, there are no symptoms. DIAGNOSIS Your health care provider may be able to detect atrial fibrillation when taking your pulse. If detected, this condition may be diagnosed with: An electrocardiogram (ECG). A Holter monitor test that records your heartbeat patterns over a 24-hour period. Transthoracic echocardiogram (TTE) to evaluate how blood flows through your heart. Transesophageal echocardiogram (VAL) to view more detailed images of your heart. A stress test. Imaging tests, such as a CT scan or chest X-ray. Blood tests. TREATMENT The main goals of treatment are to prevent blood clots from forming and to keep your heart beating at a normal rate and rhythm. The type of treatment that you receive depends on many factors, such as yo ur underlying medical conditions and how you feel when you are experiencing atrial fibrillation. This condition may be treated with: Medicine to slow down the heart rate, bring the heart's rhythm back to normal, or prevent clots from forming. Electrical cardioversion. This is a procedure that resets your heart's rhythm by delivering a controlled, low-energy shock to the heart through your skin. Different types of ablation, such as catheter ablation, catheter ablation with pacemaker, or surgical ablation. These procedures destroy the heart tissues that send abnormal signals. When the pacema ker is used, it is placed under your skin to help your heart beat in a regular rhythm. HOME CARE INSTRUCTIONS Take over-the counter and prescription medicines only as told by your health care provider. If your health care provider prescribed a blood-thinning medicine ( anticoagulant), take it exactly as told. Taking too much blood-thinning medicine can cause bleeding. If you do not take enough bloo d-thinning medicine, you will not have the protection that you need against stroke and other problems. Do not use tobacco products, including cigarettes, chewing tobacco, and e- cigarettes. If you need help quitting, ask your health care provider. If you have obstructive sleep apnea, manage your condition as told by your health care provider. Do not drink alcohol. Do not drink beverages that contain caffeine, such as coffee, soda, and tea. Maintain a healthy weight. Do not use diet pills unless your health care provider approves. Diet pills may make heart problems worse. Follow diet instructions as told by your health care provider. Exercise regularly as told by your health care provider. Keep all follow-up visits as told by your health care provider. This is important. PREVENTION Avoid drinking beverages that contain caffeine or alcohol. Avoid certain medicines, especially medicines that are used for breathing problems. Avoid certain herbs and herbal medicines, such as those that contain ephedra or ginseng. Do not use illegal drugs, such as cocaine and amphetamines. Do not smoke. Manage your high blood pressure. SEEK MEDICAL CARE IF: You notice a change in the rate, rhythm, or strength of your heartbeat. You are taking an anticoagulant and you notice increased bruising. You tire more easily when you exercise or exert yourself. SEEK IMMEDIATE MEDICAL CARE IF: You have chest pain, abdominal pain, sweating, or weakness. You feel nauseous. You notice blood in your vomit, bowel movement, or urine. You have shortness of breath. You suddenly have swollen feet and ankles. You feel dizzy. You have sudden weakness or numbness of the face, arm, or leg, especially on one side of the body. You have trouble speaking, trouble understanding, or both (aphasia). Your face or your eyelid droops on one side. These symptoms may represent a serious problem that is an emergency. Do not wait to see if the symptoms will go away. Get medical help right away. Call your local emergency services (911 in the [place] Do not drive yourself to the hospital. This information is not intended to replace advice given to you by your health care provider. Make sure you discuss any questions you have with your health care provider. Document Released: 11/02/2006 Document Revised: 07/23/2016 Document Reviewed: 02/27/2016 [employer] Patient Education 2016 [employer] No follow up information was provided. Extracted from: Title: several problems Author: Frederic Weems MD Date: 02/12/17 Impression and Plan Diagnosis Acute bronchitis (UFC14-QX J20.9, Discharge, Medical). Acute pansinusitis (QQI99-QW J01.40, Discharge, Medical). Benign essential hypertension (VLR93-IZ I10, Discharge, Medical). Excessive daytime sleepiness (BJP37-GL G47.19, Discharge, Medical). Paroxysmal atrial fibrillation (HMQ12-QU I48.0, Discharge, Medical). Snoring (IQM79-YI R06.83, Discharge, Medical). Plan: 1) Stay on the Xarelto until cleared by your accounts payable specialist to stop it. 2) Continue your other meds the same. 3) Avoid aspirin, Ibuprofen and Aleve. 4) See the sleep doctor for evaluation for possible sleep apnea, due to your daytime sleepiness, snoring, and atrial fibrillation. 5) see me in 9 months for your physical and as needed. 6) Rest at home till Thursday, due to illness. . Orders Orders (Selected) Outpatient Orders Ordered Office Visit Level 4 Est 06972: Prescriptions Prescribed Xarelto 20 mg oral tablet: 20 mg=1 tabs, Oral, Daily, 30 tabs, 11 Refill(s). Dx/Order Association Plan: Diagnosis: Acute bronchitis Comment: Ordered: Office Visit Level 4 Est [id number]; 02/12/17 11:37:00 CDT, Acute bronchitis | Acute pansinusitis | Snoring | Paroxysmal atrial fibrillation | Excessive daytime sleepiness | Benign essential hypertension Diagnosis: Acute pansinusitis Comment: Ordered: Office Visit Level 4 Est [id number]; 02/12/17 11:37:00 CDT, Acute bronchitis | Acute pansinusitis | Snoring | Paroxysmal atrial fibrillation | Excessive daytime sleepiness | Benign essential hypertension Diagnosis: Benign essential hypertension Comment: Ordered: Office Visit Level 4 Est [id number]; 02/12/17 11:37:00 CDT, Acute bronchitis | Acute pansinusitis | Snoring | Paroxysmal atrial fibrillation | Excessive daytime sleepiness | Benign essential hypertension Diagnosis: Excessive daytime sleepiness Comment: Ordered: Office Visit Level 4 Est [id number]; 02/12/17 11:37:00 CDT, Acute bronchitis | Acute pansinusitis | Snoring | Paroxysmal atrial fibrillation | Excessive daytime sleepiness | Benign essential hypertension Diagnosis: Paroxysmal atrial fibrillation Comment: Ordered: Office Visit Level 4 Est [id number]; 02/12/17 11:37:00 CDT, Acute bronchitis | Acute pansinusitis | Snoring | Paroxysmal atrial fibrillation | Excessive daytime sleepiness | Benign essential hypertension Diagnosis: Snoring Comment: Ordered: Office Visit Level 4 Est [id number]; 02/12/17 11:37:00 CDT, Acute bronchitis | Acute pansinusitis | Snoring | Paroxysmal atrial fibrillation | Excessive daytime sleepiness | Benign essential hypertension Additional Orders: Comment: Ordered: Xarelto 20 mg oral tablet,20 mg 1 tabs, Oral, Daily, # 30 tabs, 11 Refill(s), Pharmacy: [facility] #[id number], 1 tabs Oral Daily End of Orders ."
--- OUTSIDE RECORDS SUMMARY | 2018-03-02 15:54 | External Medical Summary ---
:1965 Author Organization [employer] Care Team Providers Name Role Phone Tejas To Provider Role Unavailable Allergies No Known Allergies Problems Problem Type Condition Code Onset Dates Condition Status Problem Hypertension 401.9 Active Medications No Known Medications Results No Known Results Summary Purpose [employer] Submission
--- OUTSIDE RECORDS SUMMARY | 2018-03-02 15:55 | External Medical Summary ---
:1965 Author Organization [employer] Care Team Providers Name Role Phone Tejas To Provider Role Unavailable Allergies No Known Allergies Problems Problem Type Condition ICD-9 Code Onset Dates Condition Status Problem Hypertension 401.9 Active Medications No Known Medications Results No Known Results Summary Purpose [employer] Submission
--- OUTSIDE RECORDS SUMMARY | 2018-03-02 15:55 | External Medical Summary ---
:1965 Author Organization [employer] Care Team Providers Name Role Phone Jaclyn Gale Provider Role Unavailable Allergies No Known Allergies Problems Problem Type Condition Code Onset Dates Condition Status Problem DOT/Work Physical V70.5 Active Medications No Known Medications Results No Known Results Summary Purpose [employer] Submission
--- OUTSIDE RECORDS SUMMARY | 2018-03-02 15:55 | External Medical Summary | Referral Summary ---
:1965 Author Organization [facility] Address [address] [place] [address] Care Team Providers Name Role Phone Frederic Weems Primary Care Physician Encounter [facility] [id number] Date(s): 09/07/17 - 09/07/17 [facility] [address] [place] [address]- [phone] Discharge Disposition: 01-Home or Self Care Attending Physician: Theo Villalpando MD Admitting Physician: Theo Villalpando MD Vital Signs Most recent to oldest [Reference Range]: 1 Peripheral Pulse Rate [60-100 bpm] 58 bpm *LOW* (09/07/17 3:12 PM) Blood Pressure [90-140/60-90 mmHg] 132/82 mmHg (09/07/17 3:12 PM) SpO2 93 % (09/07/17 3:12 PM) Problem List Condition Effective Dates Status Health [...] To, 0 Refill(s) Start Date: 02/12/17 Status: Orderedaspirin 81 mg oral tablet 81 mg 1 tabs, Oral, Daily, 0 Refill(s) Start Date: 07/06/17 Status: Orderedmultivitamin 1 tablet, Oral, Daily, 0 Refill(s) Start Date: 07/03/14 Status: Orderedsotalol 80 mg oral tablet 40 mg 0.5 tabs, Oral, BID, 0 Refill(s) Start Date: 02/12/17 Status: Ordered Immunizations Given and Recorded Vaccine Date Status Refusal Reason hepatitis A-hepatitis B vaccine 08/27/17 Given hepatitis A-hepatitis B vaccine 05/14/16 Given hepatitis A-hepatitis B vaccine 11/13/15 Given tetanus/diphth/pertuss (Tdap) adult/adol 11/13/15 Given tetanus/diphth/pertuss (Tdap) adult/adol 04/19/09 Recorded tetanus-diphth toxoids (Td) adult/adol 06/04/98 Recorded Procedures Procedure Date Related Diagnosis Body Site Colonoscopy2013 Fine needle aspiration biopsy of thyroid using 02/06/10 ultrasound guidance2 Repair of inguinal hernia3 11/24/02 Umbilical herniorrhaphy4 11/24/02 Extraction of wisdom teeth Tonsillectomy Vasectomy 1repeat in 10 [id number] colloid, a few clusters of benign thyroid follicular epithelial [id number], together with inguinal hernia Social History Social History Type Response Smoking Status Never smoker entered on: 07/03/14
--- OUTSIDE RECORDS SUMMARY | 2018-03-02 15:55 | External Medical Summary ---
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
--- OUTSIDE RECORDS SUMMARY | 2018-03-02 15:55 | External Medical Summary | Referral Summary ---
:1965 Author Organization [facility] Address [address] [place] [address] [place] [address] Care Team Providers Name Role Phone Frederic Weems Primary Care Physician Encounter [facility] [id number] Date(s): 08/27/17 - 08/27/17 [facility] [address] [place] [address] [place] Discharge Diagnosis: Well adult exam Discharge Diagnosis: Non-toxic multinodular goiter Discharge Diagnosis: BARB on CPAP Discharge Diagnosis: Left shoulder pain Discharge Diagnosis: Benign essential hypertension Discharge Diagnosis: Impaired fasting blood sugar Discharge Diagnosis: BPH with urinary obstruction Discharge Diagnosis: Need for hepatitis A and B vaccination Discharge Diagnosis: Plantar fasciitis of right foot Discharge Disposition: 01-Home or Self Care Attending Physician: Frederic Weems MD Admitting Physician: Frederic Weems MD Vital Signs Most recent to oldest [Reference Range]: 1 Temperature Tympanic [36.6-38.1 degC] 36.3 degC *LOW* (08/27/17 9:42 AM) Peripheral Pulse Rate [60-100 bpm] 60 bpm (08/27/17 9:42 AM) Blood Pressure [90-140/60-90 mmHg] 130/82 mmHg (08/27/17 9:42 AM) Problem List Condition Effective Dates Status [...] Procedures Procedure Date Related Diagnosis Body Site Colonoscopy1 2013 Fine needle aspiration biopsy of thyroid using 02/06/10 ultrasound guidance2 Repair of inguinal hernia3 11/24/02 Umbilical herniorrhaphy4 11/24/02 Extraction of wisdom teeth Tonsillectomy Vasectomy 1repeat in 10 [id number] colloid, a few clusters of benign thyroid follicular epithelial [id number], together with inguinal hernia Social History Social History Type Response Smoking Status Never smoker entered on: 07/03/14 Assessment and Plan Extracted from: Title: Ambulatory Patient Education Author: Frederic Weems MD Date: Preventive Health Health Maintenance, Male A healthy lifestyle and preventative care can promote health and wellness. Maintain regular health, dental, and eye exams. Eat a healthy diet. Foods like vegetables, fruits, whole grains, low-fat dairy products, and lean protein foods contain the nutrients you need and are low in calories. Decrease your intake of foods high in solid fats, added sugars, and salt. Get information about a proper diet from your health care provider, if necessary. Regular physical exercise is one of the most important things you can do for your health. Most adults should get at least 150 minutes of moderate- intensity exercise (any activity that increases your heart rate and causes you to sweat) each week. In addition, most adults need muscle-strengthening exercises on 2 or more days a week. Maintain a healthy weight. The body mass index (BMI) is a screening tool to identify possible weight problems. It provides an estimate of body fat based on height and weight. Your health care provid er can find your BMI and can help you achieve or maintain a healthy weight. For males 20 years and older: A BMI below 18.5 is considered underweight. A BMI of 18.5 to 24.9 is normal. A BMI of 25 to 29.9 is considered overweight. A BMI of 30 and above is considered obese. Maintain normal blood lipids and cholesterol by exercising and minimizing your intake of saturated fat. Eat a balanced diet with plenty of fruits and vegetables. Blood tests for lipids and cholester ol should begin at age 20 and be repeated every 5 years. If your lipid or cholesterol levels are high, you are over age 50, or you are at high risk for heart disease, you may need your cholesterol level s checked more frequently.Ongoing high lipid and cholesterol [...] low-dose CT scan of the lungs is recommen ded for people who have at least a 31-jnam-gird history of smoking and are current smokers or have quit within the past 15 years. A pack year of smoking is smoking an average of 1 pack of cigarettes a d ay for 1 year (for example, a 34-fmdn-kagk history of smoking could mean smoking 1 pack a day for 30 years or 2 packs a day for 15 years). Yearly screening should continue until the smoker has stopped s moking for at least 15 years. Yearly screening should be stopped for people who develop a health problem that would prevent them from having lung cancer treatment. If you choose to drink alcohol, do not have more than 2 drinks per day. One drink is considered to be 12 oz (360 mL) of beer, 5 oz (150 mL) of wine, or 1.5 oz (45 mL) of liquor. Avoid the use of street drugs. Do not share needles with anyone. Ask for help if you need support or instructions about stopping the use of drugs. High blood pressure causes heart disease and increases the risk of stroke. High blood pressure is more likely to develop in: People who have blood pressure in the end of the normal range (773848/ 8589 mm Hg). People who are overweight or obese. People who are . If you are 1839 years of age, have your blood pressure checked every 3 5 years. If you are 40 years of age or older, have your blood pressure checked every year. You should have your blood pres sure measured twiceonce when you are at a hospital or clinic, and once when you are not at a hospital or clinic. Record the average of the two measurements. To check your blood pressure when you are not at a hospital or clinic, you can use: An automated blood pressure machine at a pharmacy. A home blood pressure monitor. If you are 4579 years old, ask your health care provider if you should take aspirin to prevent heart disease. Diabetes screening involves taking a blood sample to check your fasting blood sugar level. This should be done once every 3 years after age 45 if you are at a normal weight and without risk factors for diabetes. Testing should be considered at a younger age or be carried out more frequently if you are overweight and have at least 1 risk factor for diabetes. Colorectal cancer can be detected and often prevented. Most routine colorectal cancer screening begins at the age of 50 and continues through age 75. However, your health care provider may recommend screening at an earlier age if you have risk factors for colon cancer. On a yearly basis, your health care provider may provide home test kits to check for hidden blood in the stool. A small camera at the end of a tube may be used to directly examine the colon (sigmoidoscopy or colonoscopy) to detect the earliest forms of colorectal cancer. Talk to your health care provider about this at age 50 when routine screening begins. A direct exam of the colon should be repeated every 510 years through age 75, unless early forms [...] treatment. You take certain medicines for conditions like cancer, organ transplantation, and autoimmune conditions. Hepatitis C blood testing is recommended for all people born from 1945 through 1965 and any individual with known risk factors for hepatitis C. Healthy men should no longer receive prostate-specific antigen (PSA) blood tests as part of routine cancer screening. Talk to your health care provider about prostate cancer screening. Testicular cancer screening is not recommended for adolescents or adult males who have no symptoms. Screening includes self-exam, a health care provider exam, and other screening tests. Consult with your health care provider about any symptoms you have or any concerns you have about testicular cancer. Practice safe sex. Use condoms and avoid high-risk sexual practices to reduce the spread of sexually transmitted infections (STIs). You should be screened for STIs, including gonorrhea and chlamydia if: You are sexually active and are younger than 24 years. You are older than 24 years, and your health care provider tells you that you are at risk for this type of infection. Your sexual activity has changed since you were last screened, and you are at an increased risk for chlamydia or gonorrhea. Ask your health care provider if you are at risk. If you are at risk of being infected with HIV, it is recommended that you take a prescription medicine daily to prevent HIV infection. This is called pre- exposure prophylaxis (PrEP). You are considered at risk if: You are a man who has sex with other men (MSM). You are a heterosexual man who is sexually active with multiple partners. You take drugs by injection. You are sexually active with a partner who has HIV. Talk with your health care provider about whether you are at high risk of being infected with HIV. If you choose to begin PrEP, you should first be tested for HIV. You should then be tested every 3 months for as long as you are taking PrEP. Use sunscreen. Apply sunscreen liberally and repeatedly throughout the day. You should seek shade when your shadow is shorter than you. Protect yourself by wearing long sleeves, pants, a wide-brimme d hat, and sunglasses year round whenever you are outdoors. Tell your health care provider of new moles or changes in moles, especially if there is a change in shape or color. Also, tell your health care provider if a mole is larger than the size of a pencil eraser. A one-time screening for abdominal aortic aneurysm (AAA) and surgical repair of large AAAs by ultrasound is recommended for men aged 6575 years who are current or former smokers. Stay current with your vaccines (immunizations). This information is not intended to replace advice given to you by your health care provider. Make sure you discuss any questions you have with your health care provider. Document Released: 04/30/2009 Document Revised: 11/23/2015 Document Reviewed: 08/05/2016 [employer] Patient Education 2017 [employer]. No follow up information was provided. Extracted from: Title: Male physical Author: Frederic Weems MD Date: 08/27/17 Impression and Plan Diagnosis Well adult exam (WYB61-IG Z00.00, Discharge, Medical). Benign essential hypertension (NKV62-KT I10, Discharge, Medical). Plantar fasciitis of right foot (JGQ50-GN M72.2, Discharge, Medical). Left shoulder pain (RJX02-SJ M25.512, Discharge, Medical). BPH with urinary obstruction (KPJ16-SZ N40.1, Discharge, Medical). Non-toxic multinodular goiter (UUE00-IO E04.2, Discharge, Medical). Impaired fasting blood sugar (DFE76-TW R73.01, Discharge, Medical). BARB on CPAP (NSE64-EQ G47.33, Discharge, Medical). Need for hepatitis A and B vaccination (SYB42-EB Z23, Discharge, Medical). Plan: 1) Healthy diet and daily exercise helps most things. 2) Continue your current meds. 3) UA and Vitamin D levels ordered. 4) See me in one year and as needed. 5) Arch supports, stretches, and ice massage recommended for your Plantar Fasciitis. 6) You refused the Flu shot. 7) Twinrix #3 given today.. Orders Orders (Selected) Outpatient Orders Ordered Periodic Comp Preventive Med 40 to 64 years Est [address]: hepatitis A-hepatitis B vaccine: 0.5 mL, IntraMuscular, Once. Dx/Order Association Plan: Diagnosis: BPH with urinary obstruction Comment: Diagnosis: Benign essential hypertension Comment: Diagnosis: Impaired fasting blood sugar Comment: Diagnosis: Left shoulder pain Comment: Diagnosis: Need for hepatitis A and B vaccination Comment: Ordered: hepatitis A-hepatitis B vaccine; 0.5 mL, IntraMuscular, Once, First Dose: 08/27/17 9:34:00 CDT, Stop Date: 08/27/17 9:34:00 CDT Diagnosis: Non-toxic multinodular goiter Comment: Diagnosis: BARB on CPAP Comment: Diagnosis: Plantar fasciitis of right foot Comment: Diagnosis: Well adult exam Comment: Ordered: Periodic Comp Preventive Med 40 to 64 years Est 99447; 08/27/17 9:34:00 CDT, Well adult exam End of Orders .
--- OUTSIDE RECORDS SUMMARY | 2018-03-02 15:56 | External Medical Summary ---
:1965 Author Organization [facility] Address [address] [place] [address] Care Team Providers Name Role Phone Tejas To Unavailable Unavailable PROBLEMS Type Condition ICD9-CM Code ITM32-IV Onset Condition SNOMED Code Code Dates Status Problem [facility] (current) Z79.01 Active 980775121 use of anticoagulants Problem Episodic atrial I48.0 Active 50934371 fibrillation Problem Bradycardia 427.89 Active 13012082 Problem Hypertension 401.9 Active 05018630 Problem Hypertension I10 Active 05310845 Problem Abnormal 794.30 Active 971867749 Cardiovascular Study ALLERGIES Unknown Allergies SOCIAL HISTORY No smoking Hx information available PLAN OF CARE VITAL SIGNS MEDICATIONS Unknown Medications RESULTS No Results PROCEDURES No Known procedures IMMUNIZATIONS No Known Immunizations
--- OUTSIDE RECORDS SUMMARY | 2018-03-02 15:56 | External Medical Summary | Referral Summary ---
:1965 Author Organization [facility] [address] [place] [address] Care Team Providers Name Role Phone Frederic Weems Primary Care Physician Encounter [facility] Date(s): 07/18/16 - 07/18/16 [facility] [address] [place] [address] [place] Discharge Disposition: 01-Home or Self Care Attending Physician: Frederic Weems MD Admitting Physician: Frederic Weems MD Vital Signs Most recent to oldest [Reference Range]: 1 Temperature Tympanic [36.6-38.1 degC] 36.1 degC *LOW* (07/18/16 3:45 PM) Peripheral Pulse Rate [60-100 bpm] 68 bpm (07/18/16 3:45 PM) Blood Pressure [90-140/60-90 mmHg] 132/90 mmHg (07/18/16 3:45 PM) Problem List Condition Effective Dates Status [...] pharmacy, # 45 tabs, 4 Refill(s), Pharmacy: [facility], 0.5 tabs Oral Daily,Instr:mail order pharmacy Start Date: 12/13/15 Status: Orderedmultivitamin 1 tablet, Oral, Daily, 0 Refill(s) Start Date: 07/03/14 Status: Orderedterbinafine 250 mg oral tablet See Instructions, Take 1 tab daily for 7 days, skip 21 days, then repeat cycle for one year, # 30 tabs, 2 Refill(s), Pharmacy: [facility] #[id number], Take 1 tab daily for 7 days, skip 21 days, then repeat cycle for one year Start Date: 05/22/16 Status: Ordered Results No data available for [...] few clusters of benign thyroid follicular epithelial [id number], together with inguinal hernia Social History Social History Type Response Smoking Status Never smoker Assessment and Plan Extracted from: Title: Ambulatory Patient Education Author: Frederic Weems MD Date: 07/18/16 Preventive Medicine Heart Disease Prevention Heart disease is a leading cause of . There are many things you can do to help prevent heart disease. BE PHYSICALLY ACTIVE Physical activity is good for your heart. It helps control your blood pressure , cholesterol levels, and weight. Try to be physically active every day. Ask your health care provider what activities are best for you. BE A HEALTHY WEIGHT Extra weight can strain your heart and affect your blood pressure and cholesterol levels. Lose weight with diet and exercise if recommended by your health care provider. EAT HEART-HEALTHY FOODS Follow a healthy eating plan as recommended by your health care provider or dietitian. Heart-healthy foods include: High-fiber foods. These include oat bran, oatmeal, and whole-grain breads and cereals. Fruits and vegetables. Avoid: Alcohol. Fried foods. Foods high in saturated fat. These include meats, butter, whole dairy products, shortening, and coconut or palm oil. Salty foods. These include canned food, luncheon meat, salty snacks, and fast food. KEEP YOUR CHOLESTEROL LEVELS UNDER CONTROL Cholesterol is a substance that is used for many important functions. When your cholesterol levels are high, cholesterol can stick to the insides of your blood vessels, making them narrow or clog. This can lead to chest pain (angina) and a heart attack. Keep your cholesterol levels under control as recommended by your health care provider. Have your cholesterol checked at least once a year. Target cholesterol levels (in mg/dL) for most people are: Total cholesterol below 200. LDL cholesterol below 100. HDL cholesterol above 40 in men and above 50 in women. Triglycerides below 150. KEEP YOUR BLOOD PRESSURE UNDER CONTROL Having high blood pressure (hypertension) puts you at risk for stroke and other forms of heart disease. Keep your blood pressure under control as recommended by your health care provider. Ask your [facility] care provider if you need treatment to lower your blood pressure. If you are 1839 years of age, have your blood pressure checked every 35 years. If you are 40 years of age or older, have your blood pressure checked every year. DO NOT USE TOBACCO PRODUCTS Tobacco smoke can damage your heart and blood vessels. Do not use any tobacco products including cigarettes, chewing tobacco, or electronic cigarettes. If you need help quitting, ask your health care provider. TAKE MEDICINES DIRECTED Take medicines only as directed by your health care provider. Ask your health care provider whether you should take an aspirin every day. Taking aspirin can help reduce your risk of heart disease and stroke. FOR MORE INFORMATION To find out more about heart disease, visit the [place] [employer]'s website at www.americanheart.org This information is not intended to replace advice given to you by your health care provider. Make sure you discuss any questions you have with your health care provider. Document Released: 06/16/2005 Document Revised: 11/23/2015 Document Reviewed: 12/27/2014 [employer] Patient Information 2016 [facility]. No follow up information was provided. Extracted from: Title: HTN, impaired FBS, neurofibroma, Author: Frederic Weems MD Date: 07/18/16 obesity Impression and Plan Diagnosis Benign essential hypertension (disorder) (VKJ19-YA I10, Working, Medical). Impaired fasting blood sugar (ABC91-VN R73.01, Working, Medical). Neurofibroma of back (DEI28-RY D23.9, Working, Medical). Plan: 1) Healthy diet and daily exercise with weight loss recommended. 2) Continue your present meds. 3) See me in 4 months and as needed. 4) Check your BP periodically. 5) Recent lab work was discussed in detail.. Orders Orders (Selected) Outpatient Orders Ordered Office Visit Level 5 Est 03181: . Dx/Order Association Plan: Diagnosis: Benign essential hypertension (disorder) Comment: Ordered: Office Visit Level 5 Est 18742; 07/18/16 16:04:00 CDT, Benign essential hypertension (disorder) | Impaired fasting blood sugar | Neurofibroma of back Diagnosis: Impaired fasting blood sugar Comment: Ordered: Office Visit Level 5 Est 86109; 07/18/16 16:04:00 CDT, Benign essential hypertension (disorder) | Impaired fasting blood sugar | Neurofibroma of back Diagnosis: Neurofibroma of back Comment: Ordered: Office Visit Level 5 Est 10780; 07/18/16 16:04:00 CDT, Benign essential hypertension (disorder) | Impaired fasting blood sugar | Neurofibroma of back End of Orders ."
--- OUTSIDE RECORDS SUMMARY | 2018-03-02 15:56 | External Medical Summary | Referral Summary ---
:1965 Author Organization [facility] [address] [place] [address] Care Team Providers Name Role Phone Frederic Weems Primary Care Physician Encounter VC Date(s): 11/14/16 - 11/14/16 [facility] [address] [place] [phone] [place] Discharge Diagnosis: Need for hepatitis A and B vaccination Discharge Diagnosis: Impaired fasting blood sugar Discharge Diagnosis: Atrial fibrillation with rapid ventricular response Discharge Diagnosis: Benign essential HTN Discharge Diagnosis: Well adult exam Discharge Disposition: 01-Home or Self Care Attending Physician: Frederic Weems MD Admitting Physician: Frederic Weems MD Vital Signs Most recent to oldest [Reference Range]: 1 Temperature Tympanic [36.6-38.1 degC] 36.3 degC *LOW* (11/14/16 8:20 AM) Peripheral Pulse Rate [60-100 bpm] 44 bpm *LOW* (11/14/16 8:20 AM) Respiratory Rate [14-20 br/min] 14 br/min (11/14/16 8:20 AM) Blood Pressure [90-140/60-90 mmHg] 130/84 mmHg (11/14/16 8:20 AM) Problem List Condition Effective Dates Status Health Status Informant Benign essential hypertension Active (disorder)(Confirmed) Benign prostatic Resolved hypertrophy(Confirmed) Hypertension(Confirmed) Active Hypertrophy-benign(Confirmed) Active APC (atrial premature Active contractions)(Confirmed) Single skin nodule(Confirmed) Active Squamous cell cancer of skin of left Active cheek(Confirmed) Thyroid disease(Confirmed) Active Allergies, Adverse Reactions, Alerts No Known Allergies Medications Diltiazem Hydrochloride ER 120 mg/24 hours oral capsule, extended release 120 mg 1 caps, Oral, Daily, # 30 caps, 11 Refill(s), Pharmacy: [facility] #[id number], 1 caps OralDaily Start Date: 11/14/16 Status: Orderedmultivitamin 1 tablet, Oral, Daily, 0 Refill(s) Start Date: 07/03/14 Status: Orderedterbinafine 250 mg oral tablet See Instructions, Take 1 tab daily for 7 days, skip 21 days, then repeat cycle for one year, # 30 tabs, 2 Refill(s), Pharmacy: [facility] #[id number], Take 1 tab daily for 7 days, skip 21 days, then repeat cycle for one year Start Date: 05/22/16 Status: OrderedXarelto 20 mg oral tablet 20 mg 1 tabs, Oral, qPM, # 30 tabs, 0 Refill(s) Start Date: 11/14/16 Status: Ordered Results Hematology Most recent to oldest [Reference Range]: 1 WBC [5.0-10.0 10*3/uL] 8.2 10*3/uL (11/14/16 8:58 AM) RBC [3.70-5.20] 4.90 (11/14/16 8:58 AM) Hgb [12.0-16.0 gm/dL] 14.6 gm/dL (11/14/16 8:58 AM) Hct [40.0-54.0 %] 43.5 % (11/14/16 8:58 AM) MCV [80.0-96.0 fL] 88.8 fL (11/14/16 8:58 AM) MCH [26.0-34.0 pg] 29.8 pg (11/14/16 8:58 AM) MCHC [32.0-36.0 gm/dL] 33.6 gm/dL (11/14/16 8:58 AM) RDW [0.0-14.5 %] 13.0 % (11/14/16 8:58 AM) Platelet [150-400 10*3/uL] 175 10*3/uL (11/14/16 8:58 AM) MPV [8.8-14.8 fL] 10.8 fL (11/14/16 8:58 AM) Neutrophils [50-70 %] 65 % (11/14/16 8:58 AM) Lymphocytes [20-40 %] 23 % (11/14/16 8:58 AM) Monocytes [4-8 %] 11 % *HI* (11/14/16 8:58 AM) Eosinophils [0-6 %] 2 % (11/14/16 8:58 AM) Basophils [0-2 %] 0 % (11/14/16 8:58 AM) Neutro Absolute [2.50-7.00] 5.32 (11/14/16 8:58 AM) Lymph Absolute [1.00-4.00] 1.85 (11/14/16 8:58 AM) [place] Absolute [0.20-0.80] 0.89 *HI* (11/14/16 8:58 AM) Eos Absolute [0.00-0.60] 0.12 (11/14/16 8:58 AM) Baso Absolute [0.00-0.30] 0.01 (11/14/16 8:58 AM) Chemistry Most recent to oldest [Reference Range]: 1 Chol [0-199 mg/dL] 146 mg/dL (11/14/16 8:58 AM) Trig [0-149 mg/dL] 68 mg/dL (11/14/16 8:58 AM) HDL [40-84 mg/dL] 55 mg/dL (11/14/16 8:58 AM) LDL [0-130 mg/dL] 77 mg/dL (11/14/16 8:58 AM) VLDL Cholesterol [0-28 mg/dL] 14 mg/dL (11/14/16 8:58 AM) Cardiac Risk [0.0-5.7] 2.7 (11/14/16 8:58 AM) Hgb A1c [4.1-5.6 %] 5.7 % *HI* (11/14/16 8:58 AM) eAvg Glucose 116.9 mg/dL (11/14/16 8:58 AM) Urinalysis Most recent to oldest [Reference Range]: 1 UA Color Yellow (11/14/16 8:59 AM) UA Appear Clear (11/14/16 8:59 AM) UA pH [5.0-8.0] 6.5 (11/14/16 8:59 AM) UA Leuk Est [Negative] Negative (11/14/16 8:59 AM) UA Nitrite [Negative] Negative (11/14/16 8:59 AM) UA Protein [Negative] Negative (11/14/16 8:59 AM) UA Glucose [Negative] Negative (11/14/16 8:59 AM) UA Ketones [Negative] Negative (11/14/16 8:59 AM) UA Urobilinogen [<=1.0 mg/dL] 0.2 mg/dL (11/14/16 8:59 AM) UA Bili [Negative] Negative (11/14/16 8:59 AM) UA Blood [Negative] Trace *ABN* (11/14/16 8:59 AM) UA Spec Grav [1.003-1.030] 1.025 (11/14/16 8:59 AM) Type Clean Catch (11/14/16 8:59 AM) Immunizations Given and Recorded Vaccine Date Status Refusal Reason tetanus/diphth/pertuss (Tdap) adult/adol 11/13/15 Given tetanus/diphth/pertuss (Tdap) adult/adol 04/19/09 Recorded hepatitis A-hepatitis B vaccine 05/14/16 Given hepatitis A-hepatitis B vaccine 11/13/15 Given tetanus-diphth toxoids (Td) adult/adol 06/04/98 Recorded Procedures Procedure Date Related Diagnosis Body Site Collection of venous blood by venipuncture 11/14/16 Colonoscopy2013 Fine needle aspiration biopsy of thyroid using 02/06/10 ultrasound guidance2 Repair of inguinal hernia3 11/24/02 Umbilical herniorrhaphy4 11/24/02 Extraction of wisdom teeth Tonsillectomy Vasectomy 1repeat in 10 [id number] colloid, a few clusters of benign thyroid follicular epithelial [id number], together with inguinal hernia Social History Social History Type Response Smoking Status Never smoker Assessment and Plan Extracted from: Title: Ambulatory Patient Education Author: Frederic Weems MD Date: Cardiovascular Atrial Fibrillation Atrial fibrillation is a type of irregular heart rhythm (arrhythmia). During atrial fibrillation, the upper chambers of the heart (atria) quiver continuously in a chaotic pattern. This causes an irregular and often rapid heart rate. Atrial fibrillation is the result of the heart becoming overloaded with disorganized signals that tell it to beat. These signals are normally released one at a time by a part of the right atrium called the sinoatrial node. They then travel from the atria to the lower chambers of the heart (ventricles), causing the atria and ventricles to contract and pump blood as they pass. In atrial fibrillation, pa rts of the atria outside of the sinoatrial node also release these signals. This results in two problems. First, the atria receive so many signals that they do not have time to fully contract. Second, t he ventricles, which can only receive one signal at a time, beat irregularly and out of rhythm with the atria. There are three types of atrial fibrillation: Paroxysmal. Paroxysmal atrial fibrillation starts suddenly and stops on its own within a week. Persistent. Persistent atrial fibrillation lasts for more than a week. It may stop on its own or with treatment. Permanent. Permanent atrial fibrillation does not go away. Episodes of atrial fibrillation may lead to permanent atrial fibrillation. Atrial fibrillation can prevent your heart from pumping blood normally. It increases your risk of stroke and can lead to heart failure. CAUSES Heart conditions, including a heart attack, heart failure, coronary artery disease, and heart valve conditions. Inflammation of the sac that surrounds the heart (pericarditis). Blockage of an artery in the lungs (pulmonary embolism). Pneumonia or other infections. Chronic lung disease. Thyroid problems, especially if the thyroid is overactive ( hyperthyroidism). Caffeine, excessive alcohol use, and use of some illegal drugs. Use of some medicines, including certain decongestants and diet pills. Heart surgery. defects. Sometimes, no cause can be found. When this happens, the atrial fibrillation is called lone atrial fibrillation. The risk of complications from atrial fibrillation increases if you have lone atrial fibrillation and you are age 60 years or older. RISK FACTORS Heart failure. Coronary artery disease. Diabetes mellitus. High blood pressure (hypertension). Obesity. Other arrhythmias. Increased age. SIGNS AND SYMPTOMS A feeling that your heart is beating rapidly or irregularly. A feeling of discomfort or pain in your chest. Shortness of breath. Sudden light-headedness or weakness. Getting tired easily when exercising. Urinating more often than normal (mainly when atrial fibrillation first begins). In paroxysmal atrial fibrillation, symptoms may start and suddenly stop. DIAGNOSIS Your health care provider may be able to detect atrial fibrillation when taking your pulse. Your health care provider may have you take a test called an ambulatory electrocardiogram (ECG). An ECG record s your heartbeat patterns over a 24-hour period. You may also have other tests , such as: Transthoracic echocardiogram (TTE). During echocardiography, sound waves are used to evaluate how blood flows through your heart. Transesophageal echocardiogram (VAL). Stress test. There is more than one type of stress test. If a stress test is needed, ask your health care provider about which type is best for you. Chest X-ray exam. Blood tests. Computed tomography (CT). TREATMENT Treatment may include: Treating any underlying conditions. For example, if you have an overactive thyroid, treating the condition may correct atrial fibrillation. Taking medicine. Medicines may be given to control a rapid heart rate or to prevent blood clots, heart failure, or a stroke. Having a procedure to correct the rhythm of the heart: Electrical cardioversion. During electrical cardioversion, a controlled , low-energy shock is delivered to the heart through your skin. If you have chest pain, very low blood pressure, or sudden h eart failure, this procedure may need to be done as an emergency. Catheter ablation. During this procedure, heart tissues that send the signals that cause atrial fibrillation are destroyed. Surgical ablation. During this surgery, thin lines of heart tissue that carry the abnormal signals are destroyed. This procedure can either be an open- heart surgery or a minimally invasive surger y. With the minimally invasive surgery, small cuts are made to access the heart instead of a large opening. Pulmonary venous isolation. During this surgery, tissue around the veins that carry blood from the lungs (pulmonary veins) is destroyed. This tissue is thought to carry the abnormal signals. HOME CARE INSTRUCTIONS Take medicines only as directed by your health care provider. Some medicines can make atrial fibrillation worse or recur. If blood thinners were prescribed by your health care provider, take them exactly as directed. Too much blood-thinning medicine can cause bleeding. If you take too little, you will not have the n eeded protection against stroke and other problems. Perform blood tests at home if directed by your health care provider. Perform blood tests exactly as directed. Quit smoking if you smoke. Do not drink alcohol. Do not drink caffeinated beverages such as coffee, soda, and some teas. You may drink decaffeinated coffee, soda, or tea. Maintain a healthy weight.Do not use diet pills unless your health care provider approves. They may make heart problems worse. Follow diet instructions as directed by your health care provider. Exercise regularly as directed by your health care provider. Keep all follow-up visits as directed by your health care provider. This is important. PREVENTION The following substances can cause atrial fibrillation to recur: Caffeinated beverages. Alcohol. Certain medicines, especially those used for breathing problems. Certain herbs and herbal medicines, such as those containing ephedra or ginseng. Illegal drugs, such as cocaine and amphetamines. Sometimes medicines are given to prevent atrial fibrillation from recurring. Proper treatment of any underlying condition is also important in helping prevent recurrence. SEEK MEDICAL CARE IF: You notice a change in the rate, rhythm, or strength of your heartbeat. You suddenly begin urinating more frequently. You tire more easily when exerting yourself or exercising. SEEK IMMEDIATE MEDICAL CARE IF: You have chest pain, abdominal pain, sweating, or weakness. You feel nauseous. You have shortness of breath. You suddenly have swollen feet and ankles. You feel dizzy. Your face or limbs feel numb or weak. You have a change in your vision or speech. MAKE SURE YOU: Understand these instructions. Will watch your condition. Will get help right away if you are not doing well or get worse. This information is not intended to replace advice given to you by your health care provider. Make sure you discuss any questions you have with your health care provider. Document Released: 11/02/2006 Document Revised: 11/23/2015 Document Reviewed: 02/27/2016 [employer] Interactive Patient Education 2016 [employer] No follow up information was provided. Extracted from: Title: Male physical Author: Frederic Weems MD Date: 11/14/16 Impression and Plan Diagnosis Well adult exam (BJE69-ZH Z00.00, Discharge, Medical). Need for hepatitis A and B vaccination (CEW65-ZX Z23, Discharge, Medical). Atrial fibrillation with rapid ventricular response (KFQ61-WW I48.91, Discharge , Medical). Impaired fasting blood sugar (UHP69-HU R73.01, Discharge, Medical). Benign essential HTN (SCB99-PQ I10, Discharge, Medical). Plan: 1) I spoke with the anesthesiology medical doctor phone representative for Dr. To. We started the patient on Xarelto 20 mg daily (samples), and Diltiazem ER 120 mg daily. 2) Lisinopril discontinued. 3) Lab ordered. 4) Followup with Dr. To next week for AF.. Orders Orders (Selected) Outpatient Orders Ordered Electrocardiogram, Routine Ecg With At Least 12 Leads; Interpretation And Report Only 09659: Periodic Comp Preventive Med 40 to 64 years Est 74322: Canceled CMP: TSH 3rd Generation: eGFR: Completed CBC w/ Differential: Comment for Lab: Estimated Average Glucose: Hgb A1c: Lipid Panel: Routine Urinalysis: Prescriptions Prescribed Diltiazem Hydrochloride ER 120 mg/24 hours oral capsule, extended release: 120 mg=1 caps, Oral, Daily, 30 caps, 11 Refill(s). 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
--- OUTSIDE RECORDS SUMMARY | 2018-03-02 15:56 | External Medical Summary | Referral Summary ---
:1965 Author Organization [facility] [address] [place] [address] Care Team Providers Name Role Phone Frederic Weems Primary Care Physician Encounter VC Date(s): 07/06/17 - 07/06/17 [facility] [address] [place] [address] [place] Discharge Diagnosis: Paresthesia of left arm Discharge Diagnosis: Plantar fasciitis, right Discharge Diagnosis: Benign essential hypertension (disorder) Discharge Diagnosis: Left shoulder pain Discharge Diagnosis: Lipoma of scalp Discharge Disposition: 01-Home or Self Care Attending Physician: Frederic Weems MD Admitting Physician: Frederic Weems MD Vital Signs Most recent to oldest [Reference Range]: 1 Temperature Tympanic [36.6-38.1 degC] 37.3 degC (07/06/17 3:05 PM) Peripheral Pulse Rate [60-100 bpm] 76 bpm (07/06/17 3:05 PM) Blood Pressure [90-140/60-90 mmHg] 138/76 mmHg (07/06/17 3:05 PM) Problem List Condition Effective Dates Status [...] To), 0 Refill(s) Start Date: 02/12/17 Status: Ordered Immunizations Given and Recorded Vaccine Date Status Refusal Reason hepatitis A-hepatitis B vaccine 05/14/16 Given hepatitis A-hepatitis B vaccine 11/13/15 Given tetanus/diphth/pertuss (Tdap) adult/adol 11/13/15 Given tetanus/diphth/pertuss (Tdap) adult/adol 04/19/09 Recorded tetanus-diphth toxoids (Td) adult/adol 06/04/98 Recorded Procedures Procedure Date Related Diagnosis Body Site Colonoscopy2013 Fine needle aspiration biopsy of thyroid using 02/06/10 ultrasound guidance2 Repair of inguinal hernia3 11/24/02 Umbilical herniorrhaphy4 11/24/02 Extraction of wisdom teeth Tonsillectomy Vasectomy 1repeat in 10 pugjz5rtaxho colloid, a few clusters of benign thyroid follicular epithelial [id number], together with inguinal hernia Social History Social History Type Response Smoking Status Never smoker Assessment and Plan Extracted from: Title: Ambulatory Patient Education Author: Frederic Weems MD Date: 07/06/17 Musculoskeletal Arthritis Arthritis is a term that is commonly used to refer to joint pain or joint disease. There are more than 100 types of arthritis. CAUSES The most common cause of this condition is wear and tear of a joint. Other causes include: Gout. Inflammation of a joint. An infection of a joint. Sprains and other injuries near the joint. A drug reaction or allergic reaction. In some cases, the cause may not be known. SYMPTOMS The main symptom of this condition is pain in the joint with movement. Other symptoms include: Redness, swelling, or stiffness at a joint. Warmth coming from the joint. Fever. Overall feeling of illness. DIAGNOSIS This condition may be diagnosed with a physical exam and tests, including: Blood tests. Urine tests. Imaging tests, such as MRI, X-rays, or a CT scan. Sometimes, fluid is removed from a joint for testing. TREATMENT Treatment for this condition may involve: Treatment of the cause, if it is known. Rest. Raising (elevating) the joint. Applying cold or hot packs to the joint. Medicines to improve symptoms and reduce inflammation. Injections of a steroid such as cortisone into the joint to help reduce pain and inflammation. Depending on the cause of your arthritis, you may need to make lifestyle changes to reduce stress on your joint. These changes may include exercising more and losing weight. HOME CARE INSTRUCTIONS Medicines Take dtgw-ytg-xjnsucu and prescription medicines only as told by your health care provider. Do not take aspirin to relieve pain if gout is suspected. Activities Rest your joint if told by your health care provider. Rest is important when your disease is active and your joint feels painful, swollen, or stiff. Avoid activities that make the pain worse. It is important to balance activity with rest. Exercise your joint regularly with pklqn-is-wptyty exercises as told by your health care provider. Try doing low-impact exercise, such as: Swimming. Water aerobics. Biking. Walking. Joint Care If your joint is swollen, keep it elevated if told by your health care provider. If your joint feels stiff in the morning, try taking a warm shower. If directed, apply heat to the joint. If you have diabetes, do not apply heat without permission from your health care provider. Put a towel between the joint and the hot pack or heating pad. Leave the heat on the area for 2030 minutes. If directed, apply ice to the joint: Put ice in a plastic bag. Place a towel between your skin and the bag. Leave the ice on for 20 minutes, 23 times per day. Keep all follow-up visits as told by your health care provider. This is important. SEEK MEDICAL CARE IF: The pain gets worse. You have a fever. SEEK IMMEDIATE MEDICAL CARE IF: You develop severe joint pain, swelling, or redness. Many joints become painful and swollen. You develop severe back pain. You develop severe weakness in your leg. You cannot control your bladder or bowels. This information is not intended to replace advice given to you by your health care provider. Make sure you discuss any questions you have with your health care provider. Document Released: 12/10/2005 Document Revised: 10/13/2016 Document Reviewed: 01/28/2016 [employer] Interactive Patient Education 2016 [employer] No follow up information was provided. Extracted from: Title: several problems Author: Frederic Weems MD Date: 07/06/17 Impression and Plan Diagnosis Benign essential hypertension (disorder) (UXP39-VZ I10, Discharge, Medical). Left shoulder pain (JOF25-ND M25.512, Discharge, Medical). Lipoma of scalp (SCR42-XN D17.0, Discharge, Medical). Paresthesia of left arm (NJN34-PW R20.2, Discharge, Medical). Plantar fasciitis, right (FYA79-HO M72.2, Discharge, Medical). Plan: 1) Patient wasn't interested in an MRI. 2) May have the lipoma of the right scalp excised if it changes or bothers. 3) See Dr. Reese for left shoulder surgery as indicated. 4) NCTs suggested for the left arm and finger paresthesias, but the patient wasn't interested. 5) No medication changes were made. 6) Xrays ordered of the left shoulder. 7) Patient instructed in plantar fascial stretching and the use of arch supports or orthotics.. Orders Orders (Selected) Outpatient Orders Ordered Office Visit Level 3 Est 79841: Ordered (Exam Ordered) Shoulder XR Complete Left: Discontinued Office Visit Level 4 Est 55337: . Dx/Order Association Plan: Diagnosis: Benign essential hypertension (disorder) Comment: Ordered: Office Visit Level 3 Est 13124; 07/06/17 15:37:00 CDT, Left shoulder pain | Paresthesia of left arm | Plantar fasciitis, right | Benign essential hypertension (disorder) | Lipoma of scalp Discontinued: Office Visit Level 4 Est 88894; 07/06/17 15:33:00 CDT, Paresthesia of left arm | Left shoulder pain | Plantar fasciitis, right | Benign essential hypertension (disorder) | Lipoma of scalp Diagnosis: Left shoulder pain Comment: Ordered: Office Visit Level 3 Est 84442; 07/06/17 15:37:00 CDT, Left shoulder pain | Paresthesia of left arm | Plantar fasciitis, right | Benign essential hypertension (disorder) | Lipoma of scalp Discontinued: Office Visit Level 4 Est 23887; 07/06/17 15:33:00 CDT, Paresthesia of left arm | Left shoulder pain | Plantar fasciitis, right | Benign essential hypertension (disorder) | Lipoma of scalp Other status: Shoulder XR Complete Left; 07/06/17 15:35:00 CDT, Routine, Stop date 07/06/17 15:35:00 CDT, Reason: Pain in joint, shoulder, Left shoulder pain | Paresthesia of left arm, ABN Status: Not Required (Activate) Diagnosis: Lipoma of scalp Comment: Ordered: Office Visit Level 3 Est 91008; 07/06/17 15:37:00 CDT, Left shoulder pain | Paresthesia of left arm | Plantar fasciitis, right | Benign essential hypertension (disorder) | Lipoma of scalp Discontinued: Office Visit Level 4 Est 68936; 07/06/17 15:33:00 CDT, Paresthesia of left arm | Left shoulder pain | Plantar fasciitis, right | Benign essential hypertension (disorder) | Lipoma of scalp Diagnosis: Paresthesia of left arm Comment: Ordered: Office Visit Level 3 Est 15262; 07/06/17 15:37:00 CDT, Left shoulder pain | Paresthesia of left arm | Plantar fasciitis, right | Benign essential hypertension (disorder) | Lipoma of scalp Discontinued: Office Visit Level 4 Est 61759; 07/06/17 15:33:00 CDT, Paresthesia of left arm | Left shoulder pain | Plantar fasciitis, right | Benign essential hypertension (disorder) | Lipoma of scalp Other status: Shoulder XR Complete Left; 07/06/17 15:35:00 CDT, Routine, Stop date 07/06/17 15:35:00 CDT, Reason: Pain in joint, shoulder, Left shoulder pain | Paresthesia of left arm, ABN Status: Not Required (Activate) Diagnosis: Plantar fasciitis, right Comment: Ordered: Office Visit Level 3 Est 86498; 07/06/17 15:37:00 CDT, Left shoulder pain | Paresthesia of left arm | Plantar fasciitis, right | Benign essential hypertension (disorder) | Lipoma of scalp Discontinued: Office Visit Level 4 Est 92955; 07/06/17 15:33:00 CDT, Paresthesia of left arm | Left shoulder pain | Plantar fasciitis, right | Benign essential hypertension (disorder) | Lipoma of scalp End of Orders ."
--- OUTSIDE RECORDS SUMMARY | 2018-03-02 15:56 | External Medical Summary | Referral Summary ---
:1965 Author Organization [facility] [address] [place] [address] Care Team Providers Name Role Phone Frederic Weems Primary Care Physician Encounter VC Date(s): 05/22/16 - 05/22/16 [facility] [address] [place] [address] [place] Discharge Disposition: 01-Home or Self Care Attending Physician: Frederic Weems MD Admitting Physician: Frederic Weems MD Vital Signs Most recent to oldest [Reference Range]: 1 Temperature Tympanic [36.6-38.1 degC] 36.2 degC *LOW* (05/22/16 7:07 AM) Peripheral Pulse Rate [60-100 bpm] 60 bpm (05/22/16 7:07 AM) Blood Pressure [90-140/60-90 mmHg] 125/83 mmHg (05/22/16 7:07 AM) Problem List Condition Effective Dates Status [...] # 30 tabs, 2 Refill(s), Pharmacy: [facility] #[id number], Take 1 tab daily for 7 days, [...] few clusters of benign thyroid follicular epithelial [id number], together with inguinal hernia Social History Social History Type Response Smoking Status Never smoker Assessment and Plan Extracted from: Title: Ambulatory Patient Education Author: Frederic Weems MD Date: 05/22/16 Family Medicine Body Ringworm Ringworm (tinea corporis) is a fungal infection of the skin on the body. This infection is not caused by worms, but is actually caused by a fungus. Fungus normally lives on the top of your skin and can be useful. However, in the case of ringworms, the fungus grows out of control and causes a skin infection. It can involve any area of skin on the body and can spread easily from one person to another (c ontagious). Ringworm is a common problem for children, but it can affect adults as well. Ringworm is also often found in athletes, especially wrestlers who share equipment and mats. CAUSES Ringworm of the body is caused by a fungus called dermatophyte. It can spread by: Touchingother people who are infected. Touchinginfected pets. Touching or sharingobjects that have been in contact with the infected person or pet (hats, marti, towels, clothing, sports equipment). SYMPTOMS Itchy, raised red spots and bumps on the skin. Ring-shaped rash. Redness near the border of the rash with a clear center. Dry and scaly skin on or around the rash. Not every person develops a ring-shaped rash. Some develop only the red, scaly patches. DIAGNOSIS Most often, ringworm can be diagnosed by performing a skin exam. Your caregiver may choose to take a skin scraping from the affected area. The sample will be examined under the microscope to see if the fungus is present. TREATMENT Body ringworm may be treated with a topical antifungal cream or ointment. Sometimes, an antifungal shampoo that can be used on your body is prescribed. You may be prescribed antifungal medicines to take by mouth if your ringworm is severe, keeps coming back, or lasts a long time. HOME CARE INSTRUCTIONS Only take fsfg-hmg-qwmoxjj or prescription medicines as directed by your caregiver. Wash the infected area and dry it completely before applying your cream or ointment. When using antifungal shampoo to treat the ringworm, leave the shampoo on the body for 35 minutes before rinsing. Wear loose clothing to stop clothes from rubbing and irritating the rash. Wash or change your bed sheets every night while you have the rash. Have your pet treated by your boat repairer if it has the same infection. To prevent ringworm: Practice good hygiene. Wear sandals or shoes in public places and showers. Do not share personal items with others. Avoid touching red patches of skin on other people. Avoid touching pets that have bald spots or wash your hands after doing so. SEEK MEDICAL CARE IF: Your rash continues to spread after 7 days of treatment. Your rash is not gone in 4 weeks. The area around your rash becomes red, warm, tender, and swollen. This information is not intended to replace advice given to you by your health care provider. Make sure you discuss any questions you have with your health care provider. Document Released: 10/30/2001 Document Revised: 07/27/2013 Document Reviewed: 05/16/2013 Exit[employer] Patient Information 2016 [employer]. No follow up information was provided. Extracted from: Title: Male HTN Author: Frederic Weems MD Date: 05/22/16 Impression and Plan Diagnosis Benign essential hypertension (disorder) (OXD50-CO I10, Working, Medical). Non-toxic multinodular goiter (LZG27-BK E04.2, Working, Medical). APC (atrial premature contractions) (TTT95-KI I49.1, Working, Medical). Onychomycosis of toenail (NPX37-AW B35.1, Working, Medical). Tinea corporis (PLV11-QD B35.4, Working, Medical). Plan: 1) Take the Terbinafine 250 mg pills once a day for 7 days every 4 weeks cyclically for one year. 2) Lab ordered: CBC, CMP, UA, TSH. 3) See Dr. To yearly, as scheduled, for your irregular heartbeats. 4) See me in October as scheduled. 5) Keep the sun off your affected skin. 6) Continue your current meds otherwise. 7) Schedule a thyroid ultrasound at the lab desk.. Orders Orders (Selected) Outpatient Orders Ordered Office Visit Level 4 Est 06908: Future (On Hold) Thyroid: Prescriptions Prescribed terbinafine 250 mg oral tablet: See Instructions, Take 1 tab daily for 7 days, skip 21 days, then repeat cycle for one year, 30 tabs, 2 Refill(s). Dx/Order Association Plan: Diagnosis: APC (atrial premature contractions) Comment: Ordered: Office Visit Level 4 Est 81694; 05/22/16 8:25:00 CDT, Benign essential hypertension (disorder) | Non-toxic multinodular goiter | Onychomycosis of toenail | Tinea corporis | APC (atrial premature contractions) Diagnosis: Benign essential hypertension (disorder) Comment: Ordered: Office Visit Level 4 Est 66551; 05/22/16 8:25:00 CDT, Benign essential hypertension (disorder) | Non-toxic multinodular goiter | Onychomycosis of toenail | Tinea corporis | APC (atrial premature contractions) Diagnosis: Non-toxic multinodular goiter Comment: Ordered: Office Visit Level 4 Est 91694; 05/22/16 8:25:00 CDT, Benign essential hypertension (disorder) | Non-toxic multinodular goiter | Onychomycosis of toenail | Tinea corporis | APC (atrial premature contractions) Diagnosis: Onychomycosis of toenail Comment: Ordered: Office Visit Level 4 Est 41827; 05/22/16 8:25:00 CDT, Benign essential hypertension (disorder) | Non-toxic multinodular goiter | Onychomycosis of toenail | Tinea corporis | APC (atrial premature contractions) Diagnosis: Tinea corporis Comment: Ordered: Office Visit Level 4 Est 39442; 05/22/16 8:25:00 CDT, Benign essential hypertension (disorder) | Non-toxic multinodular goiter | Onychomycosis of toenail | Tinea corporis | APC (atrial premature contractions) Diagnosis: Non-toxic multinodular goiter Comment: Additional Orders: Comment: Ordered: terbinafine 250 mg oral tablet,See Instructions, Take 1 tab daily for 7 days, skip 21 days, then repeat cycle for one year, # 30 tabs, 2 Refill(s), Pharmacy: [facility] #[id number], Take 1 tab daily for 7 days, skip 21 days, then repeat cycle for one year End of Orders ."
--- OUTSIDE RECORDS SUMMARY | 2018-03-02 15:56 | External Medical Summary | Referral Summary ---
:1965 [facility] [place] Address [address] [place] [address] Care Team Providers Name Role Phone Dank Frederic Gina Primary Care Physician Encounter VC Date(s): 03/18/17 - 03/18/17 [facility], [facility] [address] [place] [address]- [phone] Discharge Diagnosis: Excessive daytime sleepiness Discharge Disposition: 01-Home or Self Care Attending Physician: Theo Villalpando MD Admitting Physician: Theo Villalpando MD Vital Signs Most recent to oldest [Reference Range]: 1 Peripheral Pulse Rate [60-100 bpm] 58 bpm *LOW* (03/18/17 9:26 AM) Blood Pressure [90-140/60-90 mmHg] 134/82 mmHg (03/18/17 9:26 AM) SpO2 95 % (03/18/17 9:26 AM) Problem List Condition Effective Dates Status [...] the monring and 1 at night (Dr. Yousuf), 0 Refill(s) Start Date: 02/12/17 Status: OrderedXarelto 20 mg oral tablet 20 mg 1 tabs, Oral, Daily, # 30 tabs, 11 Refill(s), Pharmacy: [facility] # [id number], 1 tabs Oral Daily Start Date: 02/12/17 [...] wisdom teeth Tonsillectomy Vasectomy 1repeat in 10 mglcx6otzuex colloid, a few clusters of benign thyroid follicular epithelial [id number], together with inguinal hernia Social History Social History Type Response Smoking Status Never smoker Assessment and Plan Extracted from: Title: Ambulatory Patient Education Author: Theo Villalpando MD Date: 03/18/17 ENT Sleep Apnea Sleep apnea is a sleep disorder characterized by abnormal pauses in breathing while you sleep. When your breathing pauses, the level of oxygen in your blood decreases. This causes you to move out of nidhi p sleep and into light sleep. As a result, your quality of sleep is poor, and the system that carries your blood throughout your body (cardiovascular system) experiences stress. If sleep apnea remains untreated, the following conditions can develop: High blood pressure (hypertension). Coronary artery disease. Inability to achieve or maintain an erection (impotence). Impairment of your thought process (cognitive dysfunction). There are three types of sleep apnea: 1. Obstructive sleep apneaPauses in breathing during sleep because of a blocked airway. 2. Central sleep apneaPauses in breathing during sleep because the area of the brain that controls your breathing does not send the correct signals to the muscles that control breathing. 3. Mixed sleep apneaA combination of both obstructive and central sleep apnea. RISK FACTORS The following risk factors can increase your risk of developing sleep apnea: Being overweight. Smoking. Having narrow passages in your nose and throat. Being of older age. Being male. Alcohol use. Sedative and tranquilizer use. Ethnicity. Among individuals younger than 35 years, Americans are at increased risk of sleep apnea. SYMPTOMS Difficulty staying asleep. Daytime sleepiness and fatigue. Loss of energy. Irritability. Loud, heavy snoring. Morning headaches. Trouble concentrating. Forgetfulness. Decreased interest in sex. Unexplained sleepiness. DIAGNOSIS In order to diagnose sleep apnea, your caregiver will perform a physical examination. A sleep study done in the comfort of your own home may be appropriate if you are otherwise healthy. Your caregiver m ay also recommend that you spend the night in a sleep lab. In the sleep lab, several monitors record information about your heart, lungs, and brain while you sleep. Your leg and arm movements and blood oxygen level are also recorded. TREATMENT The following actions may help to resolve mild sleep apnea: Sleeping on your side. Using a decongestant if you have nasal congestion. Avoiding the use of depressants, including alcohol, sedatives, and narcotics. Losing weight and modifying your diet if you are overweight. There also are devices and treatments to help open your airway: Oral appliances. These are custom-made mouthpieces that shift your lower jaw forward and slightly open your bite. This opens your airway. Devices that create positive airway pressure. This positive pressure "splints" your airway open to help you breathe better during sleep. The following devices create positive airway pressure: Continuous positive airway pressure (CPAP) device. The CPAP device creates a continuous level of air pressure with an air pump. The air is delivered to your airway through a mask while you sleep. This continuous pressure keeps your airway open. Nasal expiratory positive airway pressure (EPAP) device. The EPAP device creates positive air pressure as you exhale. The device consists of single-use valves, which are inserted into each nostril a nd held in place by adhesive. The valves create very little resistance when you inhale but create much more resistance when you exhale. That increased resistance creates the positive airway pressure. Th is positive pressure while you exhale keeps your airway open, making it easier to breath when you inhale again. Bilevel positive airway pressure (BPAP) device. The BPAP device is used mainly in patients with central sleep apnea. This device is similar to the CPAP device because it also uses an air pump to del iver continuous air pressure through a mask. However, with the BPAP machine, the pressure is set at two different levels. The pressure when you exhale is lower than the pressure when you inhale. Surgery. Typically, surgery is only done if you cannot comply with less invasive treatments or if the less invasive treatments do not improve your condition. Surgery involves removing excess tissue in your airway to create a wider passage way. This information is not intended to replace advice given to you by your health care provider. Make sure you discuss any questions you have with your health care provider. Document Released: 10/23/2003 Document Revised: 11/23/2015 Document Reviewed: 08/11/2016 [employer] Patient Education 2016 [employer]. CPAP and BIPAP Information CPAP and BIPAP are methods of helping you breathe with the use of air pressure. CPAP stands for "continuous positive airway pressure." BIPAP stands for "bi-level positive airway pressure." In both metho ds, air is blown into your air passages to help keep you breathing well. With CPAP, the amount of pressure stays the same while you breathe in and out. CPAP is most commonly used for obstructive sleep a pnea. For obstructive sleep apnea, CPAP works by holding your airways open so that they do not collapse when your muscles relax during sleep. BIPAP is similar to CPAP except the amount of pressure is in creased when you inhale. This helps you take larger breaths. Your health care provider will recommend whether CPAP or BIPAP would be more helpful for you. WHY ARE CPAP AND BIPAP TREATMENTS USED? CPAP or BIPAP can be helpful if you have: Sleep apnea. Chronic obstructive pulmonary disease (COPD). Diseases that weaken the muscles of the chest, including muscular dystrophy or neurological diseases such as amyotrophic lateral sclerosis (ALS). Other problems that cause breathing to be weak, abnormal, or difficult. HOW IS CPAP OR BIPAP ADMINISTERED? Both CPAP and BIPAP are provided by a small machine with a flexible plastic tube that attaches to a plastic mask. The mask fits on your face, and air is blown into your air passages through your nose or mouth. The amount of pressure that is used to blow the air into your air passages can be set on the machine. Your health care provider will determine the pressure setting that should be used based on your individual needs. WHEN SHOULD CPAP OR BIPAP BE USED? In most cases, the mask is worn only when sleeping. Generally, you will need to wear the mask throughout the night and during the daytime if you take a nap. In a few cases involving certain medical cond itions, people also need to wear the mask at other times when they are awake. Follow your health care provider's instructions for when to use the machine. USING THE MASK Because the mask needs to be snug, some people feel a trapped or closed-in feeling (claustrophobic) when first using the mask. You may need to get used to the mask gradually. To do this, you can fir st hold the mask loosely over your nose or mouth. Gradually apply the mask more snugly. You can also gradually increase the amount of time that you use the mask. Masks are available in various types and sizes. Some fit over your mouth and nose, and some fit over just your nose. If your mask does not fit well, talk to your health care provider about getting a different one. If you are using a nasal mask and you tend to breathe through your mouth, a chin strap may be applied to help keep your mouth closed. The CPAP and BIPAP machines have alarms that may sound if the mask comes off or develops a leak. If you have trouble with the mask, it is very important that you talk to your health care provider about finding a way to make the mask easier to tolerate. Do not stop using the mask. This could have a negative impact on your health. TIPS FOR USING THE MACHINE Place your CPAP or BIPAP machine on a secure table or stand near an electrical outlet. Know where the on-off switch is located on the machine. Follow your health care provider's instructions for how to set the pressure on your machine and when you should use it. Do not eat or drink while the CPAP or BIPAP machine is on. Food or fluids could get pushed into your lungs by the pressure of the CPAP or BIPAP. Do not smoke. Tobacco smoke residue can damage the machine. For home use, CPAP and BIPAP machines can be rented or purchased through home health care companies. Many different brands of machines are available. Renting a machine before purchasing may help you find out which particular machine works well for you. SEEK IMMEDIATE MEDICAL CARE IF: You have redness or open areas around your nose or mouth where the mask fits. You have trouble operating the CPAP or BIPAP machine. You cannot tolerate wearing the CPAP or BIPAP mask. This information is not intended to replace advice given to you by your health care provider. Make sure you discuss any questions you have with your health care provider. Document Released: 07/31/2005 Document Revised: 11/23/2015 Document Reviewed: 06/01/2014 [employer] Patient Education 2016 [employer]Less. Procedures Sleep Studies A sleep study (polysomnogram) is a series of tests done while you are sleeping. It can show how well you sleep. This can help your health care provider diagnose a sleep disorder and show how severe your sleep disorder is. A sleep study may lead to treatment that will help you sleep better and prevent other medical problems caused by poor sleep. If you have a sleep disorder, you may also be at risk for: Sleep-related accidents. High blood pressure. Heart disease. Stroke. Other medical conditions. Sleep disorders are common. Your health care provider may suspect a sleep disorder if you: Have loud snoring most nights. Have brief periods when you stop breathing at night. Feel sleepy on most days. Fall asleep suddenly during the day. Have trouble falling asleep or staying asleep. Feel like you need to move your legs when trying to fall asleep. Have dreams that seem very real shortly after falling asleep. Feel like you cannot move when you first wake up. WHICH TESTS WILL I NEED TO HAVE? Most sleep studies last all night and include these tests: Recordings of your brain activity. Recordings of your eye movements. Recording of your heart rate and rhythm. Blood pressure readings. Readings of the amount of oxygen in your blood. Measurements of your chest and belly movement as you breathe during sleep. If you have signs of the sleep disorder called sleep apnea during your test, you may get a mask to wear for the second half of the night. The mask provides continuous positive airway pressure (CPAP). This may improve sleep apnea significantly. You will then have all tests done again with the mask in place to see if your measurements and recordings change. HOW ARE SLEEP STUDIES DONE? Most sleep studies are done over one full night of sleep. You will arrive at the study center in the evening and can go home in the morning. Bring your pajamas and toothbrush. Do not have caffeine on the day of your sleep study. Your health care provider will let you know if you need to stop taking any of your regular medicines before the test. To do the tests included in a polysomnogram, you will have: Round, sticky patches with sensors attached to recording wires (electrodes ) placed on your scalp, face, chest, and limbs. Wires from all the electrodes and sensors run from your bed to a computer. The wires can be taken off and put back on if you need to get out of bed to go to the bathroom. A sensor placed over your nose to measure airflow. A finger clip put on one finger to measure your blood oxygen level. A belt around your belly and a belt around your chest to measure breathing movements. WHERE ARE SLEEP STUDIES DONE? Sleep studies are done at sleep centers. A sleep center may be inside a hospital, office, or clinic. The room where you have the study may look like a hospital room or a hotel room. The health care providers doing the study may come in and out of the room during the study. Most of the time, they will be in another room monitoring your test. HOW IS INFORMATION FROM SLEEP STUDIES HELPFUL? A polysomnogram can be used along with your medical history and a physical exam to diagnose conditions, such as: Sleep apnea. Restless legs syndrome. Sleep-related seizure disorders. Sleep-related movement disorders. A medical doctor who specializes in sleep will evaluate your sleep study. The specialist will share the results with your primary health care provider. Treatments based on your sleep study may include: Improving your sleep habits (sleep hygiene). Wearing a CPAP mask. Wearing an oral device at night to improve breathing and reduce snoring. Taking medicine for: Restless legs syndrome. Sleep-related seizure disorder. Sleep-related movement disorder. This information is not intended to replace advice given to you by your health care provider. Make sure you discuss any questions you have with your health care provider. Document Released: 05/08/2004 Document Revised: 11/23/2015 Document Reviewed: 01/08/2015 [employer] Patient Education 2016 [employer] No follow up information was provided. Extracted from: Title: Office Visit Note Author: Theo Villalpando MD Date: 03/18/17 Assessment/Plan 1.Excessive daytime sleepiness Obstructive Sleep Apnea - -The pathophysiology of obstructive sleep apnea was discussed in detail. I explained that the treatment of choice for mild, moderate, and severe BARB is the positive pressure device, and revealed abou t the untreated consequences. We also briefly discussed other treatment options including surgery, hypoglossal nerve stimulator, and dental appliances.The patient was advised to avoid driving and other hazardous activities if feeling tired, drowsy or otherwise impaired. - Current symptoms/Signs/PMH daytime sleepiness, snoring,Age >50, Neck size >40cm, male gender, hypertension , STOP BANG score:6 - We will obtain aSPLIT NIGHT sleep study. -If patient is Dx w/ BARB patient would be interested PAP THERAPY Patient will benotified about results of sleep study via: followup appoint. Ambulatory sleep study was not obtained because due to paroxysmal atrial fibrillation and hx of PACs and question if BARB is exacerbating these.
--- OUTSIDE RECORDS SUMMARY | 2018-03-02 15:56 | External Medical Summary ---
:1965 Author Organization [facility] Address [address] [place] [address] Care Team Providers Name Role Phone Tejas To Unavailable Unavailable PROBLEMS Type Condition ICD9-CM Code CDR88-YF Onset Condition SNOMED Code Code Dates Status Problem senior living (current) Z79.01 Active 451848415 use of anticoagulants Problem Episodic atrial I48.0 Active 96274225 fibrillation Problem Bradycardia 427.89 Active 71426304 Problem Hypertension 401.9 Active 71410714 Problem Hypertension I10 Active 13294614 Problem Abnormal 794.30 Active 431538582 Cardiovascular Study ALLERGIES Unknown Allergies SOCIAL HISTORY No smoking Hx information available PLAN OF CARE VITAL SIGNS MEDICATIONS Unknown Medications RESULTS No Results PROCEDURES No Known procedures IMMUNIZATIONS No Known Immunizations
--- OUTSIDE RECORDS SUMMARY | 2018-03-02 15:56 | External Medical Summary ---
:1965 Author Organization [facility] Address [address] [place] [address] Care Team Providers Name Role Phone Tejas To Unavailable Unavailable PROBLEMS Type Condition ICD9-CM Code EDQ19-HC Onset Condition SNOMED Code Code Dates Status Problem detention (current) Z79.01 Active 561329146 use of anticoagulants Problem Episodic atrial I48.0 Active 60076557 fibrillation Problem Bradycardia 427.89 Active 59044965 Problem Hypertension 401.9 Active 28030009 Problem Hypertension I10 Active 67224648 Problem Abnormal 794.30 Active 902039769 Cardiovascular Study ALLERGIES Unknown Allergies SOCIAL HISTORY No smoking Hx information available PLAN OF CARE VITAL SIGNS MEDICATIONS Unknown Medications RESULTS No Results PROCEDURES No Known procedures IMMUNIZATIONS No Known Immunizations
--- OUTSIDE RECORDS SUMMARY | 2018-03-02 15:57 | External Medical Summary | Continuity of Care Document ---
:1965 Author Organization [facility] Allergies Active Description Code Type Severity Reaction Onset Reported/ Identified Relationship Clinical to Patient Status Yes NKDA N/A N/A Yes No Known NKMA N/A N/A 07/03/2014 Allergies Yes No Known No Aller N/A N/A 10/30/2016 Allergies Known gy Aller gies Yes No Known Aller Unknown N/A 07/21/2017 Allergies gy Medications Medication Packaging Start Date Stop Route Dosage Sig Date 07/03/2014 Oral multivitamin(mu 1 tablet, ltivitamin) Oral, Daily 12/27/2014 04/27/20 lisinopril(nick 15 See nopril 5 mg Instruction oral tablet) s, TAKE ONE TABLET BY MOUTH EVERY DAY, 30 tabs, 1 Refill(s) 10/26/2015 12/13/19 lisinopril(nick 16 See nopril 5 mg Instruction oral tablet) s, TAKE 1/2 TABLET BY MOUTH EVERY DAY, 30 tabs, 2 Refill(s) 0.5 mL 11/13/2015 11/13/20 IntraMuscular hepatitis 15 0.5 mL, A-hepatitis B IntraMuscul vaccine(hepatit ar, Once is A-hepatitis B vaccine) 05/22/2016 02/13/20 terbinafine(ter 17 See binafine 250 mg Instruction oral tablet) s, Take 1 tab daily for 7 days, skip 21 days, then repeat cycle for one year, 30 tabs, 2 Refill(s) 1 tabs 11/14/2016 02/13/20 Oral 20 mg rivaroxaban(Xar 17 20 mg=1 elto 20 mg oral tabs, Oral, tablet) qPM, 30 tabs, 0 Refill(s) 1 caps 12/04/2016 12/04/19 Oral 120 mg diltiazem(Carti 17 120 mg=1 a XT 120 mg/24 caps, Oral, hours oral BID, 30 capsule, caps, 10 extended Refill(s) release) 02/12/2017 sotalol(sotalol See 80 mg oral Instruction tablet) s, 1/2 tablet oral in the monring and 1 at night (Dr. To), 0 Refill(s) 1 tabs 02/12/2017 Oral 5 mg amLODIPine(amLO 5 mg=1 DIPine 5 mg tabs, Oral, oral tablet) Bedtime (once a day), Dr. To, 0 Refill(s) 1 tabs 02/12/2017 Oral 20 mg rivaroxaban(Xar 20 mg=1 elto 20 mg oral tabs, Oral, tablet) Daily, 30 tabs, 11 Refill(s) 1 tabs 07/06/2017 Oral 81 mg aspirin(aspirin 81 mg=1 81 mg oral tabs, Oral, tablet) Daily, 0 Refill(s) 0.5 mL 08/27/2017 08/27/20 IntraMuscular hepatitis 17 0.5 mL, A-hepatitis B IntraMuscul vaccine(hepatit ar, Once is A-hepatitis B vaccine) Problems Date Dx Attending Type Code Diagnosis Diagnosed By Coded 11/14/2016 Frederic Weems Final I10 Essential (primary) hypertension 11/14/2016 Frederic Weems Final I48.91 Unspecified atrial fibrillation 11/14/2016 Frederic Weems Final R73.01 Impaired fasting glucose 11/14/2016 Frederic Weems Final Z00.00 Encounter for general adult medical examination without abnormal findings 11/14/2016 Frederic Weems Final Z23 Encounter for immunization 02/12/2017 Frederic Weems Final G47.19 Other hypersomnia 02/12/2017 Frederic Weems Final I10 Essential (primary) hypertension 02/12/2017 Frederic Weems Final I48.0 Paroxysmal atrial fibrillation 02/12/2017 Frederic Weems Final J01.40 Acute pansinusitis, unspecified 02/12/2017 Frederic Weems Final J20.9 Acute bronchitis, unspecified 02/12/2017 Frederic Weems Final R06.83 Snoring 05/08/2017 Theo Villalpando Final G47.33 Obstructive sleep apnea (adult) (pediatric) 05/15/2017 Theo Villalpando Final G47.33 Obstructive sleep apnea (adult) (pediatric) 07/06/2017 Dank, Frederic B Final D17.0 Benign lipomatous neoplasm of skin and subcutaneous tissue of head, face and neck 07/06/2017 Frederic Weems Final I10 Essential (primary) hypertension 07/06/2017 Frederic Weems Final M25.512 Pain in left shoulder 07/06/2017 Frederic Weems Final M72.2 Plantar fascial fibromatosis 07/06/2017 Frederic Weems Final R20.2 Paresthesia of skin 07/21/2017 SALUD SHI, M19.012 Primary SALUD SHI, ALPESH Benito osteoarthritis, ALPESH W left shoulder 07/21/2017 SALUD SHI, M75.42 Impingement SALUD SHI, ALPESH [place] syndrome of left ALPESH W shoulder 08/27/2017 Frederic Weems Final E04.2 Nontoxic multinodular goiter 08/27/2017 Frederic Weems Final G47.33 Obstructive sleep apnea (adult) (pediatric) 08/27/2017 Frederic Weems Final I10 Essential (primary) hypertension 08/27/2017 Frederic Weems Final M25.512 Pain in left shoulder 08/27/2017 Frederic Weems Final M72.2 Plantar fascial fibromatosis 08/27/2017 Frederic Weems Final N40.1 Benign prostatic hyperplasia with lower urinary tract symptoms 08/27/2017 Frederic Weems Final R73.01 Impaired fasting glucose 08/27/2017 Frederic Weems Final Z00.00 Encounter for general adult medical examination without abnormal findings 08/27/2017 Frederic Weems Final Z23 Encounter for immunization 12/07/2017 Theo Villalpando Final G47.33 Obstructive sleep apnea (adult) (pediatric) Procedures Code Description [place] [address] Immunization 05/14/2016 administration (includes percutaneous, intradermal, subcutaneous, or intramuscular injections); 1 vaccine (single or combination vaccine/toxoid).. 30742 Hepatitis A and 05/14/2016 hepatitis B vaccine (HepA-HepB), adult dosage, for intramuscular use 19339 Office or other 05/22/2016 outpatient visit for the evaluation and management of an established patient, which requires at least 2 of these 3 whitfield components: A detailed history; A detailed examination; Medical d 81527 Office or other 07/18/2016 outpatient visit for the evaluation and management of an established patient, which requires at least 2 of these 3 whitfield components: A comprehensive history; A comprehensive examination; 71377 11/14/2016 Electrocardiogram, routine ECG with at least 12 leads; with interpretation and report 96132 Collection of 11/14/2016 venous blood by venipuncture 43522 Lipid panel This 11/14/2016 panel must include the following: Cholesterol, serum, total (38418) Lipoprotein, direct measurement, high density cholesterol (HDL cholesterol) (36885) Triglycerides (61490)..... 02979 Urinalysis, by 11/14/2016 dip stick or tablet reagent for bilirubin, glucose, hemoglobin, ketones, leukocytes, nitrite, pH, protein, specific gravity, urobilinogen, any number of these constituents; automated, w 05416 Hemoglobin; 11/14/2016 glycosylated (A1C) 53661 Blood count; 11/14/2016 complete (CBC), automated (Hgb, Hct, RBC, WBC and platelet count) and automated differential WBC count 33197 11/14/2016 Electrocardiogram, routine ECG with at least 12 leads; interpretation and report only 05050 Periodic 11/14/2016 comprehensive preventive medicine reevaluation and management of an individual including an age and gender appropriate history, examination, counseling/anticipatory guidance/risk factor reduc 99986 Office or other 02/12/2017 outpatient visit for the evaluation and management of an established patient, which requires at least 2 of these 3 whitfield components: A detailed history; A detailed examination; Medical d 77063 Sleep study, 05/06/2017 unattended, simultaneous recording of, heart rate, oxygen saturation, respiratory airflow, and respiratory effort (eg, thoracoabdominal movement) 34604 Office or other 05/15/2017 outpatient visit for the evaluation and management of an established patient, which requires at least 2 of these 3 whitfield components: An expanded problem focused history; An expanded prob 21909 Radiologic 07/06/2017 examination, shoulder; complete, minimum of 2 views.. 27472 Office or other 07/06/2017 outpatient visit for the evaluation and management of an established patient, which requires at least 2 of these 3 whitfield components: An expanded problem focused history; An expanded prob 23706 Office or other 07/06/2017 outpatient visit for the evaluation and management of an established patient, which requires at least 2 of these 3 whitfield components: A detailed history; A detailed examination; Medical d 54643 Immunization 08/27/2017 administration (includes percutaneous, intradermal, subcutaneous, or intramuscular injections); 1 vaccine (single or combination vaccine/toxoid).. 05136 Hepatitis A and 08/27/2017 hepatitis B vaccine (HepA-HepB), adult dosage, for intramuscular use 78474 Periodic 08/27/2017 comprehensive preventive medicine reevaluation and management of an individual including an age and gender appropriate history, examination, counseling/anticipatory guidance/risk factor reduc E0601 CONTINUOUS 09/04/2017 AIRWAY PRESSURE (CPAP) DEVICE. 38670 Office or other 12/07/2017 outpatient visit for the evaluation and management of an established patient, which requires at least 2 of these 3 whitfield components: An expanded problem focused history; An expanded prob Results Test Result Range L200.005 - 10/31/16 07:15 ICTERUS < 2 0-7 HEMOLYSIS < 15 0-25 TURBIDITY < 20 0-20 SODIUM 143 MEQ/L 134-144 POTASSIUM 4.2 MEQ/L 3.6-5 CHLORIDE 108 MEQ/L 98-107 CO2 - CARBON DIOXIDE 27 MEQ/L 22-30 ANION GAP 8 MEQ/L 5-15 BLOOD UREA NITROGEN 18.0 MG/DL 9-20 CREATININE 1.1 MG/DL 0.8-1.5 BUN/CREATININE RATIO 16 RATIO 6-26 GLOMERULAR FILTRATION RATE 70 GLUCOSE 113 MG/DL 75-110 OSMOLALITY,CALCULATED 278 MOSM/KG 261-280 CALCIUM 9.0 MG/DL 8.4-10.2 L200.1999 - 10/31/16 07:15 MAGNESIUM 1.9 MG/DL 1.6-2.3 L200.0020 - 16 08:58 ICTERUS < 2 0-7 HEMOLYSIS < 15 0-25 TURBIDITY < 20 0-20 SODIUM 142 MEQ/L 134-144 POTASSIUM 4.3 MEQ/L 3.6-5 CHLORIDE 105 MEQ/L 98-107 CO2 - CARBON DIOXIDE 29 MEQ/L 22-30 ANION GAP 8 MEQ/L 5-15 BLOOD UREA NITROGEN 17.0 MG/DL 9-20 CREATININE 1.2 MG/DL 0.8-1.5 BUN/CREATININE RATIO 14 RATIO 6-26 GLOMERULAR FILTRATION RATE 63 GLUCOSE 107 MG/DL 75-110 OSMOLALITY,CALCULATED 275 MOSM/KG 261-280 CALCIUM 9.6 MG/DL 8.4-10.2 BILIRUBIN,TOTAL 1.10 MG/DL 0.20-1.30 ALKALINE PHOSPHATASE 51 U/L 38-126 TOTAL PROTEIN 6.5 G/DL 6.3-8.2 ALBUMIN 4.0 G/DL 3.5-5.0 GLOBULIN 2.5 G/DL 2.4-3.6 ALBUMIN/GLOBULIN RATIO 1.6 RATIO 1.1-2.2 AST (SGOT) 25 U/L 17-59 ALT (SGPT) 46 U/L 21-72 L200.3850 - 11/14/16 08:58 THYROID STIM HORMONE-TSH 0.95 MIU/L 0.47-4.68 Basic Metabolic Panel (8) - 12/22/16 09:15 Glucose, Serum 88 mg/dL 65-99 BUN 21 mg/dL 6-24 Creatinine, Serum 1.36 mg/dL 0.76-1.27 eGFR If NonAfricn Am 59 mL/min/1.73 >59 eGFR If Africn Am 68 mL/min/1.73 >59 BUN/Creatinine Ratio 15 9-20 Sodium, Serum 147 mmol/L 134-144 Potassium, Serum 4.8 mmol/L 3.5-5.2 Chloride, Serum 104 mmol/L 96-106 Carbon Dioxide, Total 25 mmol/L 18-29 Calcium, Serum 9.1 mg/dL 8.7-10.2 TSH - 12/22/16 09:15 TSH 1.300 uIU/mL 0.450-4.500 Magnesium, Serum - 12/22/16 09:15 Magnesium, Serum 1.9 mg/dL 1.6-2.3 Encounters ACCT No. Visit Discharge Status Pt. Type Provider Facility Loc./Unit Complaint Date/Time [id number] 01/25/2014 01/25/2014 CLS Outpatie 11:43:00 23:59:59 nt [id number] 01/16/2014 01/16/2014 CLS Outpatie 12:42:00 23:59:59 nt [id number] 12/29/2013 12/29/2013 CLS Outpatie 14:12:00 23:59:59 nt [id number] 12/13/2013 12/13/2013 CLS Outpatie 09:21:00 23:59:59 nt [id number] 11/29/2013 11/29/2013 CLS Outpatie 15:08:00 23:59:59 nt [id number] 02/02/2018 02/02/2018 DIS Outpatie [facility] CPAP SUPPLIES 3759 13:50:00 23:59:00 nt [facility] [id number] 01/05/2018 01/05/2018 DIS Outpatie [facility] CPAP 7268 10:15:00 23:59:00 nt [facility] [id number] 12/07/2017 12/07/2017 DIS Outpatie Villalpando Theo [facility] SUP[facility] 1011 15:54:00 23:59:00 nt P [facility] [id number] 12/07/2017 12/07/2017 DIS Outpatie Kwasi Theo [facility] 2- 3 MO CPAP 9649 15:03:00 23:59:00 nt P [facility] CK COMPLIANCE Clinic [id number] 12/05/2017 12/05/2017 DIS Outpatie [facility] CPAP SUPPLIES 5059 15:49:00 23:59:00 nt [facility] [id number] 11/04/2017 11/04/2017 DIS Outpatie [facility] CPAP SUPPLIES 5121 16:56:00 23:59:00 nt [facility] [id number] 10/05/2017 10/05/2017 DIS Outpatie [facility] CPAP SUPPLIES 2233 15:43:00 23:59:00 nt [facility] [id number] 09/07/2017 09/07/2017 DIS Outpatie Theo Villalpando [facility] 4- 6 MO CPAP 8612 15:04:00 23:59:00 nt Tony [facility] CP CK WITH NEW Clinic SETUP COMPLIANCE [id number] 09/04/2017 09/04/2017 DIS Outpatie [facility] CPAP 7104 15:24:00 23:59:00 nt [facility] Clinic [id number] 08/27/2017 08/27/2017 DIS Outpatie Dank, [facility] WME 1328 09:06:00 23:59:00 nt Frederic Fuentes [facility] [id number] 08/05/2017 08/05/2017 DIS Outpatie [facility] CPAP SUPPLIES 9832 14:51:00 23:59:00 nt [facility] [id number] 07/06/2017 07/06/2017 DIS Outpatie Dank, [facility] FM left shoulder 9163 14:48:00 23:59:00 nt Frederic B [facility] pain [facility] [id number] 07/05/2017 07/05/2017 DIS Outpatie [facility] CPAP 3228 00:01:00 23:59:00 nt [facility] CP Clinic [id number] 06/08/2017 06/08/2017 DIS Outpatie Theo Villalpando [facility] Follow up 1055 14:08:00 23:59:00 nt P [facility] CP call post set Clinic up [id number] 06/04/2017 06/04/2017 DIS Outpatie Theo Villalpando [facility] AUTO CPAP 5042 14:55:00 23:59:00 nt P [facility] CP 5-20 Clinic APPROVED PER ALEXX English [id number] 06/04/2017 06/04/2017 DIS Outpatie [facility] CPAP SUPPLIES 3155 13:48:00 23:59:00 nt [facility] CP Clinic [id number] 05/15/2017 05/15/2017 DIS Outpatie Theo Villalpando [facility] HST MAY 06 87 14:58:00 23:59:00 nt P [facility] CP [facility] [id number] 05/06/2017 05/06/2017 DIS Outpatie Theo Villalpando [facility] HSAT PT WILL 7657 10:19:00 23:59:00 nt P [facility] CP PU 130PM Clinic [id number] 02/12/2017 02/12/2017 DIS Outpatie Dank, [facility] FM Discuss sleep 1930 09:59:00 23:59:00 nt Frederic B [facility] study per Clinic gambreler [id number] 11/14/2016 11/14/2016 DIS Outpatie Dank, [facility] FM PHYSICAL 0989 07:38:00 23:59:00 nt Frederic B [facility] [id number] 11/14/2016 11/14/2016 DIS Outpatie Dank, [facility] atrial fib 4626 00:01:00 23:59:00 nt Frederic B [facility] Card with rapid Clinic ventricular rate I48.91 [id number] 07/18/2016 07/18/2016 DIS Outpatie Dank, [facility] FM TCPA after 9578 15:05:00 23:59:00 nt Frederic Martinezi lab work Clinic [id number] 05/22/2016 05/22/2016 DIS Outpatie Dank, [facility] New FM itchy rash on 6965 06:57:00 23:59:00 nt Frederic Fuentes [facility] back of neck Clinic [id number] 05/14/2016 05/14/2016 DIS Outpatie Dank, [facility] New FM 3RD HEP INJ 4942 08:29:00 23:59:00 nt Frederic B [facility] [id number] 11/13/2015 11/13/2015 DIS Outpatie Dank, [facility] New FM wellness exam 3879 07:31:00 23:59:00 nt Frederic Fuentes [facility] [id number] 08/28/2017 Document [id number] 05:17:18 Registra tion [id number] 12/23/2016 Document 0907 09:07:00 Registra tion [id number] 01/01/2017 01/01/2017 Outpatie 14:07:12 14:07:12 nt [id number] 07/07/2017 Document [id number] 05:17:59 Registra tion [id number] 02/13/2017 Document [id number] 05:16:08 Registra tion [id number] 12/05/2016 Document [id number] 05:16:03 Registra tion [id number] 11/15/2016 Document [id number] 05:16:17 Registra tion [id number] 05/23/2016 Document [id number] 05:17:47 Registra tion [id number] 11/14/2015 Document [id number] 05:16:06 Registra tion [id number] 10/27/2015 Document [id number] 05:16:10 Registra tion [id number] 09/05/2015 Document [id number] 12:37:59 Registra tion [id number] 09/05/2015 Document [id number] 09:33:05 Registra tion [id number] 07/24/2017 07/24/2017 CLS Basia Edwards M25.512 Pain 6004 15:30:00 23:59:59 nt ALPESH SHI [facility] shoulder; M19.012; M75.42 [id number] 07/21/2017 07/21/2017 ROMAN Edwards lt shoulder 2179 13:35:00 15:13:00 nt , [facility] [id number] 11/14/2016 11/14/2016 HEIDY WEEMS MD, Jerry LABN 7311 09:10:00 23:59:59 nt [facility] [id number] 10/31/2016 10/31/2016 Jerry Robb MD NSC 0583 06:17:00 10:35:00 nt [facility] [id number] 09/17/2016 09/17/2016 HEIDY Edwards MATTHEW 7885 10:00:00 23:59:59 andrey SHI, [facility]
--- NOTE | 2018-03-02 16:02 | History & Physical Report ---
History of Present Illness Date: 03/02/18 (Dr Weems - PCP) Chief complaint: Rectal pain and fever HPI: Mr. Hernandez is a [address] Weems who is a direct admission for increasing rectal/scrotal pain and fever. He was seen yesterday in the office by Dr. Weems and given some NTG ointment for rectal pain which pt reports didn't help. Today pain was worse so he returned to Dr. Weems and was found to have a fever of 100. Ansocopy exam in the office revealed "a deep anal fissure with edematous edges" at the 12:00 (sacral) position. Patient hasn't felt feverish. BM's q d - no blood. Last BM this am. Hasn't had any recent hard stools. Strains w/ BM's at times but hasn't has any significant straining recently. 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 Worsened over the last few days. Has a history of hemorrhoids when he was younger related to weightlifting. Overall he is in good health. He has hypertension and history of atrial fibrillation for which he was cardioverted back to normal sinus rhythm approximately one year ago. Review of Systems All systems PM: 10-point ROS was reviewed, no additional remarkable complaints except (pain in rectal/scrotal region when moving/sitting, urinary frequency) Past Medical History Medical History: Medical History (Last Reviewed 07/22/17 @ 06:55 by Jordy Vidal MD) Atrial fibrillation High blood pressure Surgical History: Carpal Tunnel 2016, Hernia repair x 2 in abd and R groin 2004 Family History: Family History Mother Diabetes High blood pressure Father Emphysema/COPD Lymphoma Family History: As Above - Social History Smoking status: Never smoker Substance use type: does not use Alcohol intake frequency: a few times a month Housing: house Household members: spouse Current occupational status: employed ([employer]) Medications Home Medications Medication Instructions Recorded Confirmed Type Norvasc (amlodipine) 5 mg tablet 5 mg PO DAILY tab 07/21/17 03/02/18 History sotalol 80 mg tablet 40 mg PO BID 07/21/17 03/02/18 History Aspirin *EC* [Ecotrin] 1 tab PO DAILY 03/02/18 03/02/18 History Multivitamin [Multivitamins] 1 each PO DAILY 03/02/18 03/02/18 History Nitroglycerin Oint Pckt [Nitro-Bid] 1 inch RECTALLY Q1-4HR PRN 03/02/18 History Allergies Allergy/AdvReac Type Severity Reaction Status Date / Time No Known Allergies Allergy Verified 07/21/17 14:51 Exam - Constitutional Present: no acute distress, well nourished, well developed - Routine HEENT Exam Head: Present: normocephalic, atraumatic Eye: Present: EOMI, PERRL ENT: Present: mucous membranes moist, oropharynx clear - Routine Neck Exam Absent: lymphadenopathy - Routine Respiratory Exam Present: CTA bilaterally. Absent: wheezes - Routine Cardiovascular Exam Present: RRR, no murmur - Routine Abdominal Exam Present: soft, normoactive bowel sounds. Absent: tenderness, distended - Routine Extremities Exam Present: edema (trace bilateral lower extremity), normal capillary refill - Routine Back/Spine/Pelvis Exam Comments: Patient has no significant redness or swelling of the scrotum and has minimal tenderness with palpation deep in the scrotum. He is most tender with palpation inferior to the scrotum on his right side deep into the musculature. Rectal exam was deferred. - Routine Skin Exam Present: dry, warm - Routine Neurological Exam Present: alert, oriented X3, CN II-XII intact - Routine Psychiatric Exam Present: normal affect, cooperative Results - Labs CBC & Chem 7: 03/02/18 16:18 03/02/18 16:18 Assessment and Plan Assessment and Plan: Assessment Anal fissure with severe rectal pain - rule out abscess Urinary frequency and mild dysuria - w/ essentially neg UA in OP setting Fever (100.3 at PCPs office prior to admission) HTN H/o atrial fibrillation - cardioverted to NSR (Dr. To) Outpatient labs: Urinalysis-completely negative except trace blood WBC 8.71, neutrophils 6.26 Plan Admit, OBS Check CBC, CMP, lactate, BC x 2, procalcitonin. Repeat UA. CT abd and pelvis with IV contrast with attn to rectal/perineal/scrotal area Pain control - Tylenol, morphine when necessary. Consult Dr. Coles. NPO for now in the event he might need procedural intervention. SCD's for DVT PPx Care to return to Dr. Weems on discharge Further orders to be determined following results of CT and labs. Full Code 03/02/2018-6:20 PM-I reviewed this chart, the patient history, and the GUIDE WINDER's/PA 's documented findings as above. We discussed and formulated the assessment and plan as above with the additions below.-Dr. Bourne The patient states that he started having some rectal discomfort on the or the of this month. He states it became progressively worse and he saw his primary care physician yesterday and was started on nitroglycerin ointment for presumed anal fissure. This did not help and he presented to his doctor's office today and was noted to have a low-grade fever. Anoscopy revealed what appeared to be a deep anal fissure with edematous edges. With increasing pain and low-grade fever the decision was made to admit to the hospital for further evaluation and treatment. The patient has noticed some chills today after admission to the hospital. He is not sure what may have caused this anal fissure. He did lift some furniture this weekend. He has not had any recent hard stools. He has noticed urinary frequency that started yesterday. Urinalysis at the clinic showed trace blood, but was otherwise negative.He has a history of paroxysmal atrial fibrillation. The last episode was about 6 months ago. He does notice A. fib with heart racing. He denies having any chest pain or shortness of breath. He has otherwise been in good health. He does have sleep apnea and uses CPAP. On exam he is alert and in no acute distress. HEENT reveals sclerae to be anicteric and oropharynx is moist. Neck is supple. Chest is clear to auscultation. Cardiovascular reveals a regular rate and rhythm without murmur. Abdomen is soft and nontender. Extremities are free of edema. Skin is warm and dry. Examination of the perirectal area shows no obvious erythema but he is tender especially on the right side of the perirectal area. There is no erythema of the scrotum that he notices some discomfort in this area. CT abdomen and pelvis revealed a subtle low density area adjacent to the rectum in the right posterior that could be a small abscess versus artifact. Count is normal at 9.3 neutrophils 67% lymphs 18%. CMP is normal other than sodium of 146, chloride 108. Lactate is normal at 1.2. Pro-calcitonin is less than 0.05. Impression Rectal pain with low-grade chills and fever. Possible perirectal abscess. History of paroxysmal A. fib Obstructive sleep apnea Urinary frequency and urgency likely secondary to perirectal inflammation Mild hypernatremia Plan Admit as inpatient. Blood cultures at been obtained. We'll repeat a lactate. Initiate Zosyn. CT scan has been obtained. Dr. Coles has been consulted for possible perirectal abscess. The patient is to use his CPAP at night. Repeat CBC and basic metabolic profile tomorrow. IV fluids. DVT Prophylaxis: SCD's Resuscitation Status: Full Code - Physician Narrative Physician: Patti Bourne MD Narrative: Date: 03/02/18 Time: 9 Hospital Course Summary Disclaimer: The visit summary below is not to be considered part of the above Progress Note. Hospital Course: 03/02/18 Admit, OBS Check CBC, CMP, lactate, BC x 2, procalcitonin. Repeat UA. CT abd and pelvis with IV contrast with attn to rectal/perineal/scrotal area Pain control - Tylenol, morphine when necessary. Consult Dr. Coles. NPO for now in the event he might need procedural intervention. SCD's for DVT PPx Care to return to Dr. Weems on discharge Further orders to be determined following results of CT and labs. Full Code
[2018-03-02 16:44] VITALS: BMI 33.7
--- NOTE | 2018-03-02 17:11 | General Surgery Consult Note ---
Consult date: 03/02/18 Attending Physician: Patti Bourne MD History of present illness: PCP Dr. Weems [facility] Patient Stated Medical History Hypertension Sleep Apnea Hiatal Hernia Atrial fibrillation High blood pressure Surgical History: - right Carpal Tunnel 10/31/2016. - Hernia repair x 2 in abd and R groin 2004. -Normal colonoscopy Family History: Mother Diabetes High blood pressure Father Emphysema/COPD Lymphoma Sister Pancreatic cancer Brother Leukemia - Social History Smoking status: Never smoker Substance use type: does not use Alcohol intake: current Alcohol intake frequency: a few times a month Housing: house Household members: spouse Current occupational status: employed ([employer]) Current occupation: Entertainment Musician [employer] Medications Home Medications Medication Instructions Recorded Confirmed Type Norvasc (amlodipine) 5 mg tablet 5 mg PO DAILY tab 07/21/17 03/02/18 History sotalol 80 mg tablet 40 mg PO BID 07/21/17 03/02/18 History Aspirin *EC* [Ecotrin] 1 tab PO DAILY 03/02/18 03/02/18 History Multivitamin [Multivitamins] 1 each PO DAILY 03/02/18 03/02/18 History Nitroglycerin Oint Pckt [Nitro-Bid] 1 inch RECTALLY Q1-4HR PRN 03/02/18 History Allergies Allergy/AdvReac Type Severity Reaction Status Date / Time No Known Allergies Allergy Verified 07/21/17 14:51 Review of Systems 10-point ROS: negative except for HPI and the following: - General General: Present: fever - Respiratory Respiratory: Present: sleep apnea, use of CPAP - Gastrointestinal Gastrointestinal: Absent: other (rectal and scrotal pain) - Vital Signs Last Vital Signs Temp 98.7 F 03/02/18 16:32 Pulse 69 03/02/18 16:32 Resp 14 03/02/18 16:32 BP 142/80 H 03/02/18 16:32 Pulse Ox 99 03/02/18 16:32 - Laboratory Result Diagrams: 03/02/18 16:18 03/02/18 16:18 General Surgery Results - Results Labs: 03/02/18 16:18 03/02/18 16:18
[2018-03-02] MEDS: PIPERACILLIN/TAZOBACTAM 3.375 GM in NS 100 ML IV SCH ×2 (18:15→22:22)
[2018-03-02] MEDS: 1/2 NS with KCL 20mEq 1,000 ML IV SCH (18:46)
[2018-03-02] MEDS: MORPHINE SULFATE 4mg INJECTION IVP PRN ×2 (18:55→22:18)
[2018-03-02] MEDS: HYDROCODONE/APAP 7.5 MG/325 MG TABLET PO PRN (20:03)
--- NOTE | 2018-03-02 20:05 | Consultation ---
DATE OF CONSULTATION 03/02/2018 FINDINGS Mr. Hernandez is a 52-year-old gentleman whom I was asked to see today as a result of his history for significant perianal pain/discomfort in conjunction with an abnormal CT scan revealing evidence for possible perirectal abscess. Upon questioning Mr. Hernandez he informs me that about four to five days ago he began to notice a component of some discomfort within the perianal region. Patient states that he did go to [place], [place] over the weekend and was doing some work for his daughter. The patient states that yesterday and today he has been experiencing a significant increase in discomfort within the perianal region. Patient states it is getting painful to "walk or sit down." He states that he has had bowel movements yesterday as well as today. Denied severe pain associated the process of defecation. He states he saw his primary care physician and was subsequently admitted to the hospital today for further care. He denies any prior history for perirectal abscess. He states that he has been running a low-grade fever. The patient states that he did have some hemorrhoids in the remote past when he was playing football for [employer] and was lifting heavy at that time. The patient states that yesterday his primary care physician had performed a rectal examination upon him and had thought perhaps he had an anal fissure and had given him some "salve." Patient states that this "salve" has, however, not resulted in any improvement of his pain and discomfort. PAST MEDICAL HISTORY, PAST SURGICAL HISTORY, MEDICATIONS, ALLERGIES, SOCIAL HISTORY, FAMILY HISTORY, REVIEW OF SYSTEMS Performed by my nurse practitioner, Nate Herron APRN. PHYSICAL EXAMINATION GENERAL: Mr. Hernandez is a 52-year-old gentleman does not appear to be in acute distress. VITAL SIGNS: Temperature 98.7, pulse 69, respirations 14, blood pressure 142/80 , SAO2 99% on room air. HEENT: Normocephalic. Pupils are equally round and react to light and accommodation. CHEST: Clear to auscultation bilaterally. HEART: Regular rate and rhythm. Normal S1 and S2 without gallops, murmurs or clicks. ABDOMEN: Palpation of the abdomen reveals it to be soft and nontender. I do not appreciate any evidence for hepatosplenomegaly nor abnormal masses. EXTREMITIES: Without clubbing, cyanosis, or edema. NEURO: Cranial nerves II-XII grossly intact. Patient is without focal motor or sensory deficits. RECTAL: Patient was placed in a right lateral decubitus position. His buttocks were somewhat so that the perianal region could be inspected. Even with just the buttocks the patient complained of significant pain and discomfort. Upon visualization one could see a component of some erythema at about the 1 o'clock to 2 o'clock position with 12 o'clock being posterior midline. This area of erythema was perhaps about 3-4 cm in diameter. Palpation overlying this area did reveal marked induration and significant discomfort. Remaining perianal region was without induration or significant discomfort upon palpation. I did not attempt a digital rectal examination given the tenderness noted within the perianal region. LABORATORY/RADIOGRAPHIC EVALUATION The patient had a CBC today and his white count was 9.3. Hemoglobin is 13.6. CMP was obtained and found to be without marked abnormalities. Sodium was slightly elevated 146. Chloride was slightly elevated at 108. The patient did undergo a CT scan of his abdomen and pelvis. There was a subtle low-density adjacent to the rectum within the right posterior region. Findings were indicative of "artifact versus small abscess." ASSESSMENT 52-year-old gentleman with probable deep perirectal abscess. PLAN Attempted incision and drainage at bedside. I informed the patient t is my clinical intuition, given his physical findings, that he likely had a perirectal abscess and I would recommend attempting to proceed with incision and drainage at the bedside. The patient understood and wished to proceed. The area of concern involving the right buttocks region from about the 1 o' clock to 2 o'clock position adjacent to the anal verge was prepped with Betadine overlying the area of erythema and induration. 1% lidocaine with epinephrine was injected at this location. The patient did experience significant pain, more than one typically sees, with the injection of local anesthetic. I attempted to proceed with aspiration utilizing an 18-gauge needle through the area of analgesia and into the underlying area of induration and fluctuance. I did obtain what I felt was perhaps 0.5 mL or 1 mL of purulent -like material. The patient however, complained of severe pain to the point that I was unable to proceed with additional attempted aspiration. Given his severe pain I did not attempt to proceed with incision and drainage at the bedside. Several attempts were made at proceeding with repeat aspiration but this was to no avail given his severe pain. It was therefore my recommendation that tomorrow in an operative setting under sedation we proceed with a more formal rectal examination under anesthesia with probable incision and drainage of perirectal abscess. I did discuss with the patient what a rectal examination under anesthesia would entail with probable incision and drainage of perirectal abscess. I discussed potential risks which included but were not inclusive of bleeding and/or infection. The patient understood and wished to proceed as stated above. The patient will be kept n.p.o. after midnight. I agree with treating him empirically with broad-spectrum antibiotics. Currently he is on Zosyn. Will go ahead and provide some morphine intravenously on a p.r.n. basis for his discomfort. VI
[2018-03-03] MEDS: HYDROCODONE/APAP 7.5 MG/325 MG TABLET PO PRN (00:04)
[2018-03-03] MEDS: MORPHINE SULFATE 4mg INJECTION IVP PRN ×4 (04:26→14:02)
[2018-03-03] MEDS: 1/2 NS with KCL 20mEq 1,000 ML IV SCH ×2 (05:23→13:35)
[2018-03-03] MEDS: PIPERACILLIN/TAZOBACTAM 3.375 GM in NS 100 ML IV SCH ×4 (05:23→23:10)
--- NOTE | 2018-03-03 08:17 | CT Scan Report ---
Indication: rectal pain/fissure r/o abscess/Brian's gangrene PROCEDURE: CT abdomen pelvis w con: Encounter: Initial Comparison: None Technique: Axial CT images were performed through the abdomen and pelvis after the administration of intravenous contrast. Coronal and sagittal two-dimensional reformats. Automated Exposure Control and Iterative Reconstruction dose reducing techniques were utilized. Contrast: Omnipaque 300 100 mL Findings: The lung bases are clear. The liver shows a 2.7 cm cyst in the left lobe but no enhancing lesions or bile duct dilatation. The gallbladder is decompressed. The spleen, pancreas and adrenal glands are within normal limits. Right kidney appears normal. Left kidney shows parapelvic cysts. No abdominal or pelvic lymphadenopathy. No free fluid or free air. Bladder and prostate are within normal limits. There is thickening of the rectal soft tissues with a region of fluid and induration posteriorly measuring 1.7 cm in size, best seen on axial image #99. 2.2 cm cyst in the region of the seminal vesicles. The subcutaneous fat shows mild induration in the gluteal region but no evidence of subcutaneous gas or rim-enhancing abscess. No evidence of a bowel obstruction. Bone windows show no acute findings. Impression: Rectal wall thickening posteriorly with a possible small developing abscess within the wall. No drainable fluid collection. No evidence of subcutaneous gas to suggest a necrotizing fasciitis. There is a preliminary report by [employer]. .
[2018-03-03] MEDS: --POM--AMLODIPINE 5 MG TABLET PO SCH (09:42)
[2018-03-03] MEDS: MULTI-VITAMIN PLAIN TABLET PO SCH (09:43)
--- NOTE | 2018-03-03 10:53 | Progress Note ---
- Date 03/03/18 Subjective: The patient was seen this morning in his room. He is nothing by mouth for surgery. He complains of perirectal pain which improves with morphine and low back pain which improves with changing positions. He denies any chest pain, palpitations or shortness of breath. His urinary frequency has improved. He had a low-grade fever last night. Mild sweating but no chills. Objective Vital signs: Temperature 98.7 F 03/03/18 07:23 Pulse Rate 74 03/03/18 07:23 Respiratory Rate 14 03/03/18 07:23 Blood Pressure 145/83 H 03/03/18 07:23 Pulse Oximetry 97 03/03/18 07:23 Height/Weight/BMI: Height 1.96 m Weight 130 kg Body Mass Index 33.7 Comments: GEN-alert, oriented, no acute distress CV-regular rate and rhythm CHEST-clear to auscultation bilaterally ABD-soft, nontender with positive bowel sounds -no [place] EXT-no edema, SCDs are on NEURO-no focal deficits SKIN-warm and dry Results - Labs CBC & Chem 7: 03/03/18 04:31 03/03/18 04:31 Labs: 67% neutrophils. Lactate was normal 3. Microbiology Results: Microbiology 03/02/18 16:25 Peripheral/Iv Start Blood Culture - Preliminary Culture Initiated - Results Pending 03/02/18 16:18 Peripheral/Iv Start Blood Culture - Preliminary Culture Initiated - Results Pending Assessment and Plan Assessment and Plan: Impression Perirectal abscess-Zosyn initiated 03/02/2018 History of paroxysmal A. fib-sinus rhythm this hospitalization Obstructive sleep apnea-uses CPAP at home Urinary frequency and urgency likely secondary to perirectal inflammation- approved Mild hypernatremia present on admission-resolved Plan Continue Zosyn for perirectal abscess. Blood cultures are pending. Dr. Coles is taking the patient to the OR later today to drain his perirectal abscess. Continue morphine as needed for pain. Continue IV fluids for now. Use home CPAP at night. CBC and basic metabolic profile tomorrow. Discussed with case management, likely change to inpatient status. Patient will need continued IV antibiotics. DVT Prophylaxis: SCD's Resuscitation Status: Full Code - Time spent with patient Time with patient PN: 25 minutes - Physician Narrative Physician: Patti Bourne MD Narrative: Date: 03/03/18 Time: 1045 Hospital Course Summary Disclaimer: The visit summary below is not to be considered part of the above Progress Note. Hospital Course: 03/02/18 Admit, OBS Check CBC, CMP, lactate, BC x 2, procalcitonin. Repeat UA. CT abd and pelvis with IV contrast with attn to rectal/perineal/scrotal area Pain control - Tylenol, morphine when necessary. Consult Dr. Coles. NPO for now in the event he might need procedural intervention. SCD's for DVT PPx Care to return to Dr. Weems on discharge Further orders to be determined following results of CT and labs. Full Code
--- NOTE | 2018-03-03 11:51 | Anesthesia Preoperative Report ---
Anesthesia Preoperative Record - Date and Time Date: 03/03/18 Preoperative Diagnosis: rectal fissure/fever, r/o abscess Proposed Procedure: I and D Buttock Abcess NPO Since Date: 03/02/18 NPO Since Time: 23:00 Allergies/Adverse Reactions: Allergies Allergy/AdvReac Type Severity Reaction Status Date / Time No Known Allergies Allergy Verified 07/21/17 14:51 - Vital Signs Vital Signs: Temperature 98.6 F 03/03/18 11:44 Pulse Rate 74 03/03/18 11:44 Respiratory Rate 15 03/03/18 11:44 Blood Pressure 134/62 03/03/18 11:44 Pulse Oximetry 94 03/03/18 11:44 Height and Weight: Height 6 ft 5 in Weight 130 kg Body Mass Index 33.7 - Medications Inpatient Medications: Current Medications Acetaminophen (Tylenol) 650 mg PO Q4H PRN PRN Reason: Discomfort Hydrocodone Bitart/Acetaminophen ([place] 7.5/325) 1 tab PO Q4H PRN PRN Reason: Pain Last Admin: 03/03/18 00:04 Dose: 1 tab Amlodipine Besylate (Norvasc) 5 mg PO DAILY [facility] Last Admin: 03/03/18 09:42 Dose: Not Given Piperacillin Sod/Tazobactam (Sod 3.375 gm/ Sodium Chloride) 100 mls @ 200 mls/ hr IV Q6H [facility] Last Admin: 03/03/18 11:17 Dose: 200 mls/hr Potassium Chloride/Sodium Chloride (1/2 Ns With Kcl 20meq Premix) 1,000 mls @ 100 mls/hr IV .Q10H [facility] Last Infusion: 03/03/18 11:17 Dose: 0 mls/hr Morphine Sulfate (Morphine Sulfate Inj) 2 - 4 mg IVP Q3-4HR PRN PRN Reason: Pain Last Admin: 03/03/18 10:41 Dose: 4 mg Morphine Sulfate (Morphine Sulfate Inj) 1 - 4 mg IVP Q1H PRN PRN Reason: Pain Multivitamins (Theragran) 1 tab PO DAILY [facility] Last Admin: 03/03/18 09:43 Dose: Not Given Ondansetron HCl (Zofran) 4 mg IVP Q6H PRN PRN Reason: Nausea &/or vomiting Sotalol HCl (Betapace) 40 mg PO BID/E [facility] Home Medications: Home Medications Medication Instructions Recorded Confirmed Type Norvasc (amlodipine) 5 mg tablet 5 mg PO DAILY tab 07/21/17 03/02/18 History sotalol 80 mg tablet 40 mg PO BID 07/21/17 03/02/18 History Aspirin *EC* [Ecotrin] 1 tab PO DAILY 03/02/18 03/02/18 History Multivitamin [Multivitamins] 1 each PO DAILY 03/02/18 03/02/18 History Nitroglycerin Oint Pckt [Nitro-Bid] 1 inch RECTALLY Q1-4HR PRN 03/02/18 History Is Patient on Beta Severiano?: Yes Beta Severiano Last Dose Date/Time: 03/03/18 pm - Medical History Respiratory: Reports: Sleep Apnea, Other (cpap for snoring) DENIES: Asthma, Bronchitis, Chronic Obstructive Pulmonary Disease (COPD), Dyspnea, Orthopnea, Pulmonary Embolism, Pneumonia, Upper Respiratory Infection, Pulmonary Edema, Tuberculosis Cardiovascular: Reports: Abnormal EKG (hx afib with conversion), Hypertension ( sotolol) DENIES: Angina, Arrhythmia, Congestive Heart Failure, Coronary Artery Disease , Heart Murmur, Hypotension, High Cholesterol, Myocardial Infarction, Rheumatic Fever, Valvular Heart Disease, Other Gastrointestional: Reports: Hiatal Hernia (sx fixed) DENIES: Obstructive Bowel, Hepatitis, Cirrhosis, Nausea or Vomiting Present, Gastroesophageal Reflux Disease, Gastrointestinal Bleeding, Ulcer, Morbid Obesity, Other Renal/Endocrine: DENIES: Diabetes Mellitus Type 1, Diabetes Mellitus Type 2, Renal Failure, Dialysis, Thyroid Disease, Weight Loss, Weight Gain, Other Other History: DENIES: Anesthesia Reactions, Now, Blood Transfusions, Chemotherapy , Cancer, Hemophilia, Malignant Hyperthermia, Sickle Cell Disease, Other - Surgical History Respiratory Surgery/Treatments: Reports: CPAP Use GI Surgery/Treatments: Reports: Colonoscopy (2015) Anesthesia Reactions: None Hx Family Anesthesia Reaction: No History of Motion Sickness: No - Social History Smoking Status: Never smoker Hx Chewing Tobacco Use: No Second Hand Exposure: No Substance Use Type: does not use Alcohol Intake: current Alcohol Intake Frequency: a few times a month - Pertinent Findings Laboratory: CBC and BMP 03/03/18 04:31 03/03/18 04:31 BMP 03/02/18 03/03/18 16:18 04:31 Sodium 146 H 143 Potassium 4.2 4.0 Chloride 108 H 106 Carbon Dioxide 27 26 BUN 14.0 12.0 Creatinine 0.9 1.0 Glucose 102 116 H Calcium 9.3 8.9 Liver Function 03/02/18 Range/Units 16:18 Total Bilirubin 0.50 (0.20-1.30) MG/DL AST 18 (17-59) U/L ALT 16 (1-50) U/L Alkaline Phosphatase 61 (38-126) U/L Albumin 4.3 (3.5-5.0) g/dL Urine 03/02/18 Range/Units 18:03 Urine Color Yellow (YELLOW) Urine Clarity Clear Urine pH 7.0 (5.0-8.0) Ur Specific [place] <=1.005 L (1.015-1.025) Urine Protein Negative (NEGATIVE) Urine Glucose (UA) Negative (NEGATIVE) EKG: Sinus Rhythm - Physical Exam Respiratory Exam: Present: lungs clear, bilateral breath sounds equal Cardiovascular Exam: Present: regular rate and rhythm, no murmur - Airway Assessment Mallampati Score: II TMD: 3 Fingerbreadths Neck Extension: good Overall Assessment: no airway concerns - ASA ASA Score: 2 - Plan Anesthesia: General TIVA - Discussion Discussion: Discussed risks/options/alternatives of anesthesia and questions answered. Patient consents. Nursing pain assessment noted. Attestation Statement: Prior to the delivery of any anesthetic medication, I examined the patient, developed the plan, obtained the patient's consent and discussed the risk and benefits of the procedure with the patient/guardian. - Additional Information Seen by Anesthesia: Yes
--- NOTE | 2018-03-03 12:41 | General Surgery Procedure Note ---
Date of Procedure: 03/03/18 Surgeon: [employer] Department Chairperson: Nate Herron APRN Postoperative Diagnosis: [place]-rectal abscess Procedure: incision and drainage of venice-rectal abscess right buttock area, with packing Estimated Blood Loss: See Anesthesia Record.
--- NOTE | 2018-03-03 12:49 | Anesthesia Postoperative Note ---
- Date and Time Date: 03/03/18 Time: 12:49 - Status Patient Participated in Evaluation: Patient Participated in Person Vital Signs: Temperature 98.6 F 03/03/18 11:44 Pulse Rate 74 03/03/18 11:44 Respiratory Rate 15 03/03/18 11:44 Blood Pressure 134/62 03/03/18 11:44 Pulse Oximetry 94 03/03/18 11:44 Respiratory Function: Airway Patent, Regular Respirations Cardiovascular Function: Regular Pulse EKG: Sinus Rhythm Mental Status: Alert and Oriented Pain Intensity: 0 Hydration: IV Infusing Complications During Recover: None Apparent - Follow-Up Instructions Instructions: Per Surgeon
[~2018-03-03 15:40] MED LIST: ACETAMINOPHEN 500 MG TABLET PO PRN; BUPIVACAINE 0.25%/EPI 1:200,000 30ml SDV ID ONE; BUPIVACAINE 0.25%/EPI 1:200,000 30ml SDV ONE; FentaNYL 250 MCG/5 ML INJECTION ONE; IOHEXOL 300mg/ml 100ml INJECTION ONE; KETAMINE 500 MG/10 ML INJECTION ONE; LR 1,000 ML IV SCH; MORPHINE SULFATE 2mg INJ IVP PRN; ONDANSETRON 4 MG/2 ML INJECTION IVP PRN; PROPOFOL 500 MG/50 ML VIAL ONE; SALINE FLUSH 10ml SYRINGE ONE; SOTALOL 80 MG TABLET PO SCH
--- NOTE | 2018-03-03 16:34 | Operative Note ---
DATE OF SERVICE 03/03/2018 SURGEON Benjie Coles MD PREOPERATIVE DIAGNOSIS Probable perirectal abscess. POSTOPERATIVE DIAGNOSIS Perirectal abscess. PROCEDURE Rectal examination under anesthesia, incision and drainage of deep perirectal abscess. ANESTHESIA TIVA/local. BRIEF HISTORY/INDICATIONS Mr. Hernandez is a 52-year-old gentleman who was admitted last evening for a suspected perirectal abscess. I attempted to incise and drain what I believed was that of a perirectal abscess at the bedside under local anesthetic. The patient experienced enough discomfort that this was not able to be accomplished. It was therefore recommended that he undergo rectal examination under anesthesia with probable drainage of perirectal abscess. The patient was begun on broad-spectrum antibiotics. For completeness please refer to notes included in the patient's chart. NARRATIVE OF PROCEDURE After informed consent was obtained the patient was brought to the operative suite and placed on the table in a lithotomy position. Perianal region and peritoneal region were prepped and draped in a sterile fashion. Formal timeout was then completed. Next, attention was focused to the perianal region. One could still see an area of induration and erythema just posterior to the right of midline adjacent to the perianal region. Palpation over this area revealed a fair amount of induration. Although the patient was under total intravenous anesthesia it did appear that he was experiencing some discomfort with palpation overlying this area. 0.25% Marcaine with epinephrine was injected at this location. Next, an 18-gauge needle was introduced through the area of analgesia and advanced into the underlying subcutaneous tissues with aspiration. Approximately 2-3 cm beneath the surface of the skin the patient was found to have an abscess cavity and randal purulent material was obtained. This was submitted for bacterial cultures. Next, a 1.5-cm cruciate incision was then made overlying the area of analgesia. Hemostat was introduced through the incision and subsequently advanced into the underlying tissues. The abscess cavity was obtained. Hemostat was then spread and a moderate amount of malodorous purulent material was then expressed from the underlying abscess cavity. Edges of the cruciate incision were then excised to facilitate drainage of the abscess cavity. A finger was placed within the small cruciate incision and advanced up to about 5 cm. The abscess cavity was then copiously irrigated. Next, digital rectal examination was performed. Normal sphincter tone. No rectal masses were appreciated. A bivalve speculum was then placed through the anal verge and the anal canal was inspected. One could see some actual purulent material within the rectum itself at this time. The purulent material was suctioned and I was unable to find any evidence for an obvious fistula or opening. No worrisome abnormalities were noted within the anal canal. The patient was found to have moderate internal hemorrhoids. [place] speculum was removed. The abscess cavity was then packed with 1/2-inch NuGauze moistened in normal saline. The patient tolerated the procedure without difficulty and is in the process of awakening from his anesthetic. He will be sent back to the recovery room once deemed in stable condition. VI
[2018-03-03] MEDS: Oxycodone *IR* 5 MG TABLET PO PRN ×2 (17:59→22:10)
[2018-03-03] MEDS: SOTALOL 80 MG PO SCH (21:29)
[2018-03-04] MEDS: 1/2 NS with KCL 20mEq 1,000 ML IV SCH ×2 (00:55→11:50)
[2018-03-04] MEDS: Oxycodone *IR* 5 MG TABLET PO PRN ×4 (03:22→16:28)
[2018-03-04] MEDS: PIPERACILLIN/TAZOBACTAM 3.375 GM in NS 100 ML IV SCH ×3 (05:19→18:54)
[2018-03-04] MEDS: SOTALOL 80 MG PO SCH (06:02)
[2018-03-04] MEDS ORDERED: AMOX/CLAV 875 MG/125 MG TABLET PO SCH (09:00)
[2018-03-04] MEDS: --POM--AMLODIPINE 5 MG TABLET PO SCH (09:37)
[2018-03-04] MEDS ORDERED: SENNA + DOCUSATE TABLET PO PRN (09:41)
[2018-03-04] MEDS ORDERED: POLYETHYL GLYCOL 3350 17gm PACKET PO PRN (09:41)
--- NOTE | 2018-03-04 09:44 | General Surgery Progress Note ---
Subjective Patient reports: feels better (buttock pain is much less. He is taking PO pain meds and is "trying to stretch it out to 4-5 hours" between doses.), tolerating a regular diet Narrative: Culture grew E.Coli. Will start him on Bactrim DS BID. cannot be here till after 5pm, will teach her how to do packing changes, this should be done daily. He can be discharged after she learns packing changes. Also admitting counselor him on Mirilax daily 2nd to narcotic induced constipation. - Vital Signs Last Vital Signs Temp 97.5 F 03/04/18 07:44 Pulse 56 L 03/04/18 07:44 Resp 18 03/04/18 07:44 BP 140/74 H 03/04/18 07:44 Pulse Ox 97 03/04/18 07:44 - Laboratory Result Diagrams: 03/04/18 04:32 03/04/18 04:32 - Microbiogy Microbiology 03/03/18 11:55 Rectum Gram Stain - Final 03/03/18 11:55 Rectum Surgical Culture - Preliminary Escherichia coli 03/02/18 16:25 Peripheral/Iv Start Blood Culture - Preliminary No Growth After 1 Day 03/02/18 16:18 Peripheral/Iv Start Blood Culture - Preliminary No Growth After 1 Day - Normal Exam General: awake, alert, oriented, no acute distress Cardiovascular: regular rate Respiratory: no labored breathing Abdominal: incision(s) (dressing right buttock in place, not removed now, will remove and repack when arrives.) Psychiatric: normal affect Assessment and Plan (1) [place]-rectal abscess Current Visit: Yes Status: Acute Plan: E-Coli on preliminary micro, will start Bactrim DS and teach how to do packing changes. Plan on seeing him in the office on Thu next week. Plan home today. Hospital Course Summary Disclaimer: The visit summary below is not to be considered part of the above Progress Note. Hospital Course: 03/02/18 Admit, OBS Check CBC, CMP, lactate, BC x 2, procalcitonin. Repeat UA. CT abd and pelvis with IV contrast with attn to rectal/perineal/scrotal area Pain control - Tylenol, morphine when necessary. Consult Dr. Coles. NPO for now in the event he might need procedural intervention. SCD's for DVT PPx Care to return to Dr. Weems on discharge Further orders to be determined following results of CT and labs. Full Code
[2018-03-04] MEDS: MULTI-VITAMIN PLAIN TABLET PO SCH (09:52)
[2018-03-04] MEDS ORDERED: SULFAMETHOXAZOLE/TMP 800 MG/160 MG DS TABLET PO SCH (10:00)
--- NOTE | 2018-03-04 10:58 | Progress Note ---
- Date 03/04/18 Subjective: F/U: POD #1 perirectal abscess, constipation. Gregory is seen while resting in bed. He reports that he is doing well and his pain is well controlled. He has been tolerating oral intake and oral medications well. No chest pain, shortness of breath, cough, abdominal pain, nausea, vomiting or dysuria. No BM since surgery, though admits to passing gas. Appetite is stable. Blood cultures remain negative. Abscess culture revealed E.coli with sensitivities pending. He continues on Zosyn. Telemetry reveals sinus rhythm. Labs stable. Plan to discharge, hopefully tonight, on Bactrium DS. Case management exploring options of cost for home health to assist with packing, otherwise, will wait until patient's can be taught how to pack the wound sometime after 5 pm. Objective Vital signs: Temperature 97.5 F 03/04/18 07:44 Pulse Rate 56 L 03/04/18 07:44 Respiratory Rate 18 03/04/18 07:44 Blood Pressure 140/74 H 03/04/18 07:44 Pulse Oximetry 97 03/04/18 07:44 Rhythm: Normal Sinus Rhythm Height/Weight/BMI: Height 6 ft 5 in Weight 286 lb 6.087 oz Body Mass Index 33.7 Comments: Patient resting in bed and in no apparent discomfort. - Constitutional Present: no acute distress, well nourished, well developed, obese, cooperative - Routine HEENT Exam Head: Present: normocephalic, atraumatic Eye: Present: PERRL. Absent: conjunctival icterus ENT: Present: mucous membranes moist, oropharynx clear - Routine Respiratory Exam Present: CTA bilaterally. Absent: rales, respiratory distress, rhonchi, stridor , wheezes, crackles - Routine Cardiovascular Exam Present: RRR, S1, S2 - Routine Abdominal Exam Present: soft, normoactive bowel sounds, non distended, non tender - Routine Extremities Exam Present: no edema, full ROM, pulses intact - Routine Back/Spine/Pelvis Exam Back/Spine: Present: full ROM. Absent: vertebral tenderness - Routine Musculoskeletal Exam Musculoskeletal: Present: moving extremities well - Routine Skin Exam Present: intact, dry, warm Comments: Afebrile. - Routine Neurological Exam Present: alert, oriented X3, moving all extremities, hearing grossly intact, normal speech - Routine Lymphatic Exam Lymphatic: Absent: lymphedema - Routine Psychiatric Exam Present: normal affect, cooperative Results - Labs CBC & Chem 7: 03/04/18 04:32 03/04/18 04:32 Microbiology Results: Microbiology 03/03/18 11:55 Rectum Gram Stain - Final 03/03/18 11:55 Rectum Surgical Culture - Preliminary Escherichia coli 03/02/18 16:25 Peripheral/Iv Start Blood Culture - Preliminary No Growth After 1 Day 03/02/18 16:18 Peripheral/Iv Start Blood Culture - Preliminary No Growth After 1 Day Assessment and Plan Assessment and Plan: Impression S/P I&D by Dr. Coles - 03/03/18. Perirectal abscess-Zosyn initiated 03/02/2018 History of paroxysmal A. fib-sinus rhythm this hospitalization Obstructive sleep apnea-uses CPAP at home Urinary frequency and urgency likely secondary to perirectal inflammation- approved Mild hypernatremia present on admission-resolved Plan - 03/04/18: Abscess culture revealed E.coli with sensitivities pending. Continue Zosyn for perirectal abscess - POD #1. Plan to start Bactrium DS BID upon discharge. Continue pain control - patient trying to space out pain medications and taking oral meds in anticipation of discharge in near future. Blood cultures negative x 1 day. Labs stable. Plan to discharge home this evening. Case management evaluating if home health would be an option for the daily packing. If not, will need to teach the patient's how to pack the wound. She will not be available until after 5pm. Continue bowel motivation. Patient will need miralax daily to prevent narcotic induced constipation. Plan to follow up with Dr. Coles in clinic on 03/10/18. 03/04/2018-please see my note and discharge summary from today's date.-Dr. Bourne DVT Prophylaxis: SCD's Resuscitation Status: Full Code - Time spent with patient Time with patient PN: 25 minutes - Physician Narrative Physician: Patti Bourne MD Narrative: Date: 03/04/18 Time: 1054 Hospital Course Summary Disclaimer: The visit summary below is not to be considered part of the above Progress Note. Hospital Course: 03/02/18 Admit, OBS Check CBC, CMP, lactate, BC x 2, procalcitonin. Repeat UA. CT abd and pelvis with IV contrast with attn to rectal/perineal/scrotal area Pain control - Tylenol, morphine when necessary. Consult Dr. Coles. NPO for now in the event he might need procedural intervention. SCD's for DVT PPx Care to return to Dr. Weems on discharge Further orders to be determined following results of CT and labs. Full Code Plan - 03/04/18: Abscess culture revealed E.coli with sensitivities pending. Continue Zosyn for perirectal abscess - POD #1. Plan to start Bactrium DS BID upon discharge. Continue pain control - patient trying to space out pain medications and taking oral meds in anticipation of discharge in near future. Blood cultures negative x 1 day. Labs stable. Plan to discharge home this evening. Case management evaluating if home health would be an option for the daily packing. If not, will need to teach the patient's how to pack the wound. She will not be available until after 5pm. Continue bowel motivation. Patient will need miralax daily to prevent narcotic induced constipation. Plan to follow up with Dr. Coles in clinic on 03/10/18.
[2018-03-04 11:54] VITALS: RESP 16
[2018-03-04 16:24] VITALS: BP 131/69; PULSE 62; TEMP 98.9; O2SAT 97
[2018-03-04] MEDS: MORPHINE SULFATE 4mg INJECTION IVP PRN (17:26)
--- NOTE | 2018-03-04 18:11 | Discharge Summary ---
Discharge Information Date of admission: 03/03/18 15:40 Anticipated date of discharge: 03/04/18 Attending Physician: Patti Bourne MD Primary care physician: Frederic Weems MD Consults: 03/02/18 16:33 Physician Consult [CONS] Routine Consulting Provider: Benjie Coles Reason For Exam: rectal/scrotal/perineal pain/anal fissure Ordering Provider has Notified Venue Attendant: Yes [place]-rectal abscess secondary to E.coli. S/P I&D by Dr. Coles - 03/03/18. History of paroxysmal A. fib-sinus rhythm this hospitalization. Obstructive sleep apnea-uses CPAP at home. Urinary frequency and urgency likely secondary to perirectal inflammation- improved. Mild hypernatremia present on admission-resolved. Anemia, unspecific. - Procedures Procedures: DATE OF SERVICE 03/03/2018 SURGEON Benjie Coles MD PREOPERATIVE DIAGNOSIS Probable perirectal abscess. POSTOPERATIVE DIAGNOSIS Perirectal abscess. PROCEDURE Rectal examination under anesthesia, incision and drainage of deep perirectal abscess. ANESTHESIA TIVA/local. BRIEF HISTORY/INDICATIONS Mr. Hernandez is a 52-year-old gentleman who was admitted last evening for a suspected perirectal abscess. I attempted to incise and drain what I believed was that of a perirectal abscess at the bedside under local anesthetic. The patient experienced enough discomfort that this was not able to be accomplished. It was therefore recommended that he undergo rectal examination under anesthesia with probable drainage of perirectal abscess. The patient was begun on broad-spectrum antibiotics. For completeness please refer to notes included in the patient's chart. NARRATIVE OF PROCEDURE After informed consent was obtained the patient was brought to the operative suite and placed on the table in a lithotomy position. Perianal region and peritoneal region were prepped and draped in a sterile fashion. Formal timeout was then completed. Next, attention was focused to the perianal region. One could still see an area of induration and erythema just posterior to the right of midline adjacent to the perianal region. Palpation over this area revealed a fair amount of induration. Although the patient was under total intravenous anesthesia it did appear that he was experiencing some discomfort with palpation overlying this area. 0.25% Marcaine with epinephrine was injected at this location. Next, an 18-gauge needle was introduced through the area of analgesia and advanced into the underlying subcutaneous tissues with aspiration. Approximately 2-3 cm beneath the surface of the skin the patient was found to have an abscess cavity and randal purulent material was obtained. This was submitted for bacterial cultures. Next, a 1.5-cm cruciate incision was then made overlying the area of analgesia. Hemostat was introduced through the incision and subsequently advanced into the underlying tissues. The abscess cavity was obtained. Hemostat was then spread and a moderate amount of malodorous purulent material was then expressed from the underlying abscess cavity. Edges of the cruciate incision were then excised to facilitate drainage of the abscess cavity. A finger was placed within the small cruciate incision and advanced up to about 5 cm. The abscess cavity was then copiously irrigated. Next, digital rectal examination was performed. Normal sphincter tone. No rectal masses were appreciated. A bivalve speculum was then placed through the anal verge and the anal canal was inspected. One could see some actual purulent material within the rectum itself at this time. The purulent material was suctioned and I was unable to find any evidence for an obvious fistula or opening. No worrisome abnormalities were noted within the anal canal. The patient was found to have moderate internal hemorrhoids. [place] speculum was removed. The abscess cavity was then packed with 1/2-inch NuGauze moistened in normal saline. The patient tolerated the procedure without difficulty and is in the process of awakening from his anesthetic. He will be sent back to the recovery room once deemed in stable condition. - Laboratory Labs: 03/04/18 04:32 03/04/18 04:32 - Microbiology Microbiology 03/02/18 16:25 Peripheral/Iv Start Blood Culture - Preliminary No Growth After 2 Days 03/02/18 16:18 Peripheral/Iv Start Blood Culture - Preliminary No Growth After 2 Days 03/03/18 11:55 Rectum Gram Stain - Final 03/03/18 11:55 Rectum Surgical Culture - Preliminary Escherichia coli - Radiology Radiology: Date of Exam: 03/02/18 Type of Exam(s): CT abdomen pelvis w con Reason for Exam(s): rectal pain/fissure r/o abscess/Brian's gangrene Findings: The lung bases are clear. The liver shows a 2.7 cm cyst in the left lobe but no enhancing lesions or bile duct dilatation. The gallbladder is decompressed. The spleen, pancreas and adrenal glands are within normal limits. Right kidney appears normal. Left kidney shows parapelvic cysts. No abdominal or pelvic lymphadenopathy. No free fluid or free air. Bladder and prostate are within normal limits. There is thickening of the rectal soft tissues with a region of fluid and induration posteriorly measuring 1.7 cm in size, best seen on axial image #99. 2.2 cm cyst in the region of the seminal vesicles. The subcutaneous fat shows mild induration in the gluteal region but no evidence of subcutaneous gas or rim-enhancing abscess. No evidence of a bowel obstruction. Bone windows show no acute findings. Impression: Rectal wall thickening posteriorly with a possible small developing abscess within the wall. No drainable fluid collection. No evidence of subcutaneous gas to suggest a necrotizing fasciitis. History of Present Illness HPI: Mr. Hernandez is a [address] Weems who is a direct admission for increasing rectal/scrotal pain and fever. He was seen yesterday in the office by Dr. Weems and given some NTG ointment for rectal pain which pt reports didn't help. Today pain was worse so he returned to Dr. Weems and was found to have a fever of 100. Ansocopy exam in the office revealed "a deep anal fissure with edematous edges" at the 12:00 (sacral) position. Patient hasn't felt feverish. BM's q d - no blood. Last BM this am. Hasn't had any recent hard stools. Strains w/ BM's at times but hasn't has any significant straining recently. 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 Worsened over the last few days. Has a history of hemorrhoids when he was younger related to weightlifting. Overall he is in good health. He has hypertension and history of atrial fibrillation for which he was cardioverted back to normal sinus rhythm approximately one year ago. Objective Vital signs: Temperature 98.9 F 03/04/18 16:22 Pulse Rate 62 03/04/18 16:22 Respiratory Rate 16 03/04/18 16:22 Blood Pressure 131/69 03/04/18 16:22 Pulse Oximetry 97 03/04/18 16:22 Rhythm: Normal Sinus Rhythm Height/Weight/BMI: Height 6 ft 5 in Weight 286 lb 6.087 oz Body Mass Index 33.7 - Constitutional Present: no acute distress, well nourished, well developed, cooperative - Routine HEENT Exam Head: Present: normocephalic, atraumatic Eye: Present: PERRL. Absent: conjunctival icterus ENT: Present: mucous membranes moist, oropharynx clear - Routine Respiratory Exam Present: CTA bilaterally - Routine Cardiovascular Exam Present: RRR, S1, S2 - Routine Abdominal Exam Present: soft, normoactive bowel sounds, non distended, non tender - Routine Extremities Exam Present: no edema, full ROM, pulses intact - Routine Back/Spine/Pelvis Exam Back/Spine: Present: full ROM. Absent: vertebral tenderness - Routine Musculoskeletal Exam Musculoskeletal: Present: moving extremities well - Routine Skin Exam Present: dry, warm - Routine Neurological Exam Present: alert, oriented X3, moving all extremities, hearing grossly intact, normal speech - Routine Psychiatric Exam Present: normal affect, cooperative Hospital Course This is a general summary of the patient's hospital course. For more details refer to the complete medical record. Hospital course: Patient was admitted to inpatient status on 03/02/18. CT abdomen/pelvis revealed subtle low density area adjacent to the rectum in the right posterior that could be a small abscess versus artifact. Dr. Coles was consulted and attempted bedside I&D but was unable to complete the procedure due to the patient's extreme pain. Dr. Coles recommended further exam with possible I& D on 03/03/18 in the OR. The patient was made NPO in anticipation of surgery and his pain was controlled with tylenol and morphine fairly effectively. Zosyn was initiated for empiric coverage of suspected pathogens consistent with perirectal abscess. Given his NPO status, his hydration was maintained with IV fluids, which subsequently resolved his mild hypernatremia noted on admission. He underwent successful I&D of the abscess in the OR on 03/03/18. Cultures from the I&D revealed E.coli with sensitivities pending at the time of discharge. His labs remained stable throughout his admission. Mild anemia noted following hydration with hemoglobin at 12.8 at time of discharge. He remained on Zosyn for antimicrobial treatment throughout his admission. Will change to Bactrim DS BID x 10 days prior to discharge. Blood cultures remained negative x 2 days. Plan is for patient to discharge home and follow up with Dr. Coles in the wound clinic daily, M-F, for daily wound packing changes. He is instructed to return to [facility] infusion center over the weekends for his daily wound packing changes. Instructions to continue miralax daily to prevent narcotic induced constipation were reviewed multiple times. He is encourage to return if changes or worsening in his condition. 03/04/2018-4:30 PM-I reviewed this chart, the patient history, and the [employer]'s/PA 's documented findings as above. We discussed and formulated the assessment and plan as above with the additions below.-Dr. Bourne The patient was seen here this evening in his room. Other than pain with having his wound packed, he is doing well. He denies any fevers, chills or sweats. He is eating and drinking well. He had a bowel movement without difficulty. He is urinating okay. He is up walking without difficulty. Dr. Coles has recommended discharge to home on Bactrim DS twice daily for 10 days. Due to the amount of pain the patient has with wound packing, he will come in for outpatient wound care. He has been given instructions on pain medications to take prior to wound changes. On exam he is alert and in no acute distress. Chest is clear to auscultation. Cardiovascular reveals a regular rate and rhythm. Abdomen is soft and nontender. Extremities are free of edema. Patient is stable for dismissal to home today. He was encouraged to call Dr. Coles or Dr. Weems if he should have any difficulties once he goes home. I did notify Dr. Weems of hospital course and discharge plans. Time spent with patient: greater than 35 minutes Resuscitation Status: Full Code Discharge Plan - Discharge Disposition Discharge Date: 03/04/18 Disposition: 01 Discharged Home, Self-Care *Condition: Stable Reason For Visit (Visit label in EMR): rectal fissure/fever, r/o abscess - Discharge Medications *Discharge Medications: New PEG 3350 17gm PACKET [Miralax] 17 gm PO DAILY packet Senna + Docusate [Senna Plus Tablet] 1 tab PO BID tab Sulfamethox/Tmp [Bactrim Ds] 1 tab PO BID #20 tab Oxycodone *IR* [Roxicodone *Ir*] 5 mg PO Q4H PRN #40 tab PRN Reason: Pain Continue Nitroglycerin Oint Pckt [Nitro-Bid] 1 inch RECTALLY Q1-4HR PRN PRN Reason: Pain Aspirin *EC* [Ecotrin] 1 tab PO DAILY Multivitamin [Multivitamins] 1 each PO DAILY Norvasc (amlodipine) 5 mg tablet 5 mg PO DAILY tab sotalol 80 mg tablet 40 mg PO BID - Discharge Packet/Instructions *Diet: regular *Activity: Do not drive, operate machinery for 24 hours after surgery or while taking pain medication. *Pain Management/Treatment: Follow prescriptions as prescribed *Wound Care: Present to Dr. Coles's office daily (-) for wound packing change. Present to [facility] infusion center over the weekends for wound packing change daily. Keep wound cover with gauze or feminin pad, changing daily and as needed if dirty or wet. May use tape or undershorts that are tight enough to keep feminin pad in place. Additional Instructions: Keep stools soft, use Mirilax and stool softener daily , if stools become too lose, stop for 1-2 days, then resume Mirilax 1/2 dose or every other day. *Expected Signs/Symptoms: Tenderness and bruising at incision sites. *Notify Physician if: 1. Call your surgeon if you are having problems relating to your surgery at [phone]. 2. Problems such as: Temp above 101.5 degrees. You develop redness, excessive swelling of the incision, increasing pain or excessive foul smelling drainage. 3. If the office is closed, call [facility] at [phone] and have your Surgeon paged. *During Business Hours Contact: Call your surgeon at at [phone]. *After Business Hours Contact: If the office is closed, call [facility] at [phone] and have your Surgeon paged. *Pending Lab/Results: Follow up w/Provider - Referrals/Follow Up *Referrals/Follow Up: Benjie Coles MD [Physician] - 03/10/18 11:00 am - Patient Handouts Patient Handouts: Anorectal Abscess and Anal Fistula (DC) - Dismissal Complete Discharge Instructions are:: Complete Physician Narrative - Narrative Attestation Narrative: Date: 03/04/18 Time: 856
[2018-03-04] MEDS ORDERED: AMLODIPINE 5 MG TABLET PO SCH (20:00)
[2018-03-04] MEDS ORDERED: SENNA + DOCUSATE TABLET PO SCH (21:00)
[2018-03-05] MEDS ORDERED: POLYETHYL GLYCOL 3350 17gm PACKET PO SCH (09:00)
[2018-03-05] MEDS ORDERED: AMLODIPINE 5 MG TABLET PO SCH (20:00)
== END 2018-03-04 19:40 | disposition home or self-care (01) | DRG 345 ==
LOC: MED
PROVIDERS: ADMIT Internal Medicine; ATTEND Internal Medicine